=== PATIENT | male | born 1995 | race Caucasian/White ===

== ENCOUNTER 2018-04-24 22:22 | Emergency (ER) | payer BC, SELFPAY ==
--- NOTE | 2018-04-24 23:31 | ER ---
Nurse's Notes [facility] Name: Keenan Puckett Age: 22 yrs Sex: Male : 1995 Arrival Date: 04/24/2018 Time: 22:23 Bed 5 Private MD: Diagnosis: Acute upper respiratory infection, unspecified;Acute serous otitis media, left ear Presentation: 04/24 22:34 Presenting complaint: Patient states: throat pain X1 week. pt with family who has URI, ak1 Flu and strep. Transition of care: patient was not received from another setting of care. Onset of symptoms is unknown. Risk Assessment: Do you want to hurt yourself or someone else? Patient reports no desire to harm self or others. Initial Sepsis Screen: Does the patient meet any 2 criteria? Systolic BP < 90 mmHg. HR > 90 bpm. Does the patient have a suspected source of infection? No. Patient's initial sepsis screen is negative. Care prior to arrival: None. 22:34 Method Of Arrival: Ambulatory ak1 22:34 Acuity: RANDA 4 ak1 Triage Assessment: 22:36 General: Appears in no apparent distress. Behavior is calm, cooperative. Pain: ak1 Complains of pain in throat. EENT: Throat is reddened with gag reflex present. Neuro: No deficits noted. Cardiovascular: No deficits noted. Respiratory: Reports cough that is. GI: No signs and/or symptoms were reported involving the gastrointestinal system. : No signs and/or symptoms were reported regarding the genitourinary system. Derm: No signs and/or symptoms reported regarding the dermatologic system. Musculoskeletal: No signs and/or symptoms reported regarding the musculoskeletal system. Historical: - Allergies: 22:36 No Known Allergies; ak1 - Home Meds: 22:36 None [Active]; ak1 - PMHx: 22:36 None; ak1 - PSHx: 22:36 None; ak1 - Immunization history:: Adult Immunizations up to date. - Social history:: Smoking status: Patient uses tobacco products, denies chronic smoking, but will smoke occasionally. - Ebola Screening: : No symptoms or risks identified at this time. Screenin:38 Abuse screen: Denies threats or abuse. Denies injuries from another. Nutritional ak1 screening: No deficits noted. Tuberculosis screening: No symptoms or risk factors identified. Fall Risk None identified. Assessment: 22:37 Reassessment: Patient appears in no apparent distress at this time. No changes from ak1 previously documented assessment. see triage assessment. Vital Signs: 22:33 BP 132 / 98; Pulse 104; Resp 18; Temp 99.8(O); Pulse Ox 98% on R/A; Weight 86.18 kg ak1 (R); Height 5 ft. 10 in. (177.80 cm) (R); Pain 4/10; 23:29 BP 133 / 99; Pulse 101; Resp 18; Pulse Ox 96% on R/A; ak1 22:33 Body Mass Index 27.26 (86.18 kg, 177.80 cm) ak1 ED Course: 22:23 Patient arrived in ED. es 22:28 [facility]C [facility] snw 22:28 Marshal Mendoza MD is Attending Physician. snw 22:32 Susan Tuttle, RN is Primary Nurse. ak1 22:33 Arm band placed on Patient placed in an exam room, on a stretcher, on pulse oximetry, ak1 Patient notified of wait time. 22:35 Triage completed. ak1 22:38 Patient has correct armband on for positive identification. Bed in low position. Call ak1 light in reach. Side rails up X 1. Adult w/ patient. Pulse ox on. NIBP on. 23:32 No provider procedures requiring assistance completed. Patient did not have IV access ak1 during this emergency room visit. Administered Medications: 23:40 Drug: Augmentin 875 mg Route: PO; ak1 23:41 Follow up: Response: No adverse reaction ak1 Outcome: 23:31 Discharge ordered by . snw 23:33 Discharged to home ambulatory. ak1 23:33 Condition: good 23:33 Discharge instructions given to patient, family, Instructed on discharge instructions, follow up and referral plans. no drinking with medication, no driving heavy equipment, medication usage, Demonstrated understanding of instructions, follow-up care, medications, Prescriptions given X 2. 23:41 Patient left the ED. ak1 Signatures: Isi Torre FNP-C RESOURCE TECHNICIAN-Belinda Louis Susan Tuttle, RN RN ak1
--- NOTE | 2018-04-24 23:32 | EDPHYS ---
Physician Documentation [facility] Name: Keenan Puckett Age: 22 yrs Sex: Male : 1995 Arrival Date: 04/24/2018 Time: 22:23 Bed 5 Private MD: ED Physician Marshal Mendoza HPI: 04/25 02:43 This 22 yrs old Male presents to ER via Ambulatory with complaints of Flu snw Symptoms. 02:43 The patient or guardian reports cough. Onset: The symptoms/episode began/occurred snw suddenly, 3 day(s) ago, and became persistent. Modifying factors: The symptoms are alleviated by nothing. Associated signs and symptoms: Pertinent positives: fever, rhinorrhea, sore throat. Severity of symptoms: At their worst the symptoms were moderate. The patient has not experienced similar symptoms in the past. It is unknown whether or not the patient has recently seen a physician. Historical: - Allergies: 04/24 22:36 No Known Allergies; ak1 - Home Meds: 22:36 None [Active]; ak1 - PMHx: 22:36 None; ak1 - PSHx: 22:36 None; ak1 - Immunization history:: Adult Immunizations up to date. - Social history:: Smoking status: Patient uses tobacco products, denies chronic smoking, but will smoke occasionally. - Ebola Screening: : No symptoms or risks identified at this time. ROS: 04/25 02:42 Eyes: Negative for injury, pain, redness, and discharge. snw Neck: Negative for injury, pain, and swelling. Cardiovascular: Negative for chest pain, palpitations, and edema, Abdomen/GI: Negative for abdominal pain, nausea, vomiting, diarrhea, and constipation, Back: Negative for injury and pain, : Negative for injury, bleeding, discharge, and swelling, MS/Extremity: Negative for injury and deformity, Skin: Negative for injury, rash, and discoloration, Neuro: Negative for headache, weakness, numbness, tingling, and seizure. Constitutional: Positive for body aches, chills, malaise. ENT: Positive for sinus congestion, sore throat. Respiratory: Positive for cough. Exam: 02:39 Constitutional: This is a well developed, well nourished patient who is awake, alert, snw and in no acute distress. Head/Face: Normocephalic, atraumatic. Eyes: Pupils equal round and reactive to light, extra-ocular motions intact. Lids and lashes normal. Conjunctiva and sclera are non-icteric and not injected. Cornea within normal limits. Periorbital areas with no swelling, redness, or edema. Neck: Trachea midline, no thyromegaly or masses palpated, and no cervical lymphadenopathy. Supple, full range of motion without nuchal rigidity, or vertebral point tenderness. No Meningismus. Chest/axilla: Normal chest wall appearance and motion. Nontender with no deformity. No lesions are appreciated. Cardiovascular: Regular rate and rhythm with a normal S1 and S2. No gallops, murmurs, or rubs. Normal PMI, no JVD. No pulse deficits. Abdomen/GI: Soft, non-tender, with normal bowel sounds. No distension or tympany. No guarding or rebound. No evidence of tenderness throughout. Back: No spinal tenderness. No costovertebral tenderness. Full range of motion. Skin: Warm, dry with normal turgor. Normal color with no rashes, no lesions, and no evidence of cellulitis. MS/ Extremity: Pulses equal, no cyanosis. Neurovascular intact. Full, normal range of motion. Neuro: Awake and alert, GCS 15, oriented to person, place, time, and situation. Cranial nerves II-XII grossly intact. Motor strength 5/5 in all extremities. Sensory grossly intact. Cerebellar exam normal. Normal gait. 02:39 ENT: Ear canal(s): are normal, TM's: erythema, that is moderate, on the left, Nose: Nasal mucosa: edematous, Mouth: is normal, Posterior pharynx: erythema, that is mild, Voice: is normal. 02:39 Respiratory: the patient does not display signs of respiratory distress, Respirations: normal, Breath sounds: are clear throughout. Vital Signs: 04/24 22:33 BP 132 / 98; Pulse 104; Resp 18; Temp 99.8(O); Pulse Ox 98% on R/A; Weight 86.18 kg ak1 (R); Height 5 ft. 10 in. (177.80 cm) (R); Pain 4/10; 23:29 BP 133 / 99; Pulse 101; Resp 18; Pulse Ox 96% on R/A; ak1 22:33 Body Mass Index 27.26 (86.18 kg, 177.80 cm) ak1 MDM: 23:21 Patient medically screened. snw 04/25 02:41 Data reviewed: vital signs, nurses notes. Data interpreted: Pulse oximetry: on room air snw is 96 %. Interpretation: acceptable. Counseling: I had a detailed discussion with the patient and/or guardian regarding: the historical points, exam findings, and any diagnostic results supporting the discharge/admit diagnosis, the presence of at least one elevated blood pressure reading (>120/80) during this emergency department visit, lab results, the need for outpatient follow up, to return to the emergency department if symptoms worsen or persist or if there are any questions or concerns that arise at home. Special discussion: Based on the history and exam findings, there is no indication for further emergent testing or inpatient evaluation. I discussed with the patient/guardian the need to see the primary care provider for further evaluation of the symptoms. 04/24 22:38 Order name: Flu; Complete Time: 23:30 ak 04/24 22:38 Order name: Strep; Complete Time: 23:30 ak1 04/24 23:29 Order name: Throat Culture EDWV Administered Medications: 04/24 23:40 Drug: Augmentin 875 mg Route: PO; ak1 23:41 Follow up: Response: No adverse reaction ak1 Disposition: 04/25 03:11 Co-signature as Attending Physician, Marshal Mendoza MD. rn Disposition: 04/24/18 23:31 Discharged to Home. Impression: Acute upper respiratory infection, unspecified, Acute serous otitis media, left ear. - Condition is Stable. - Discharge Instructions: Otitis Media, Adult, Upper Respiratory Infection, Adult, Cool Mist Vaporizer, Rehydration, Adult. - Prescriptions for cefdinir 300 mg Oral capsule - take 2 capsule by ORAL route once daily for 10 days; 20 capsule. Prednisone 20 mg Oral Tablet - take 2 tablet by ORAL route once daily for 5 days; 10 tablet. - Work release form, Medication Reconciliation Form, Thank You Letter, Antibiotic Education, Prescription Opioid Use form. - Follow up: Private Physician; When: 2 - 3 days; Reason: Recheck today's complaints, Continuance of care, Re-evaluation by your physician. Follow up: Emergency Department; When: As needed; Reason: Worsening of condition. Signatures: [facility] Isi Torre, CREMATORY ATTENDANT-C CREMATORY ATTENDANT-Csnw Marshal Mendoza MD MD rn Krenek, Amber, RN RN ak1 Corrections: (The following items were deleted from the chart) 04/24 23:41 23:31 04/24/2018 23:31 Discharged to Home. Impression: Acute upper respiratory ak1 infection, unspecified; Acute serous otitis media, left ear. Condition is Stable. Forms are Medication Reconciliation Form, Thank You Letter, Antibiotic Education, Prescription Opioid Use. Follow up: Private Physician; When: 2 - 3 days; Reason: Recheck today's complaints, Continuance of care, Re-evaluation by your physician. Follow up: Emergency Department; When: As needed; Reason: Worsening of condition. snw
[2018-04-24] MEDS ORDERED: AMOX/K CLAV 875 MG TAB ONE (23:49)
== END 2018-04-24 23:41 | disposition home or self-care (01) ==
LOC: ER 22:22
DX: J06.9 Acute upper respiratory infection, unspecified (principal); H65.02 Acute serous otitis media, left ear; Z72.0 Tobacco use
CPT/HCPCS: 87070; 87081; 87804; 99283

== ENCOUNTER 2018-08-24 18:06 | Emergency (ER) | payer SELFPAY ==
--- OUTSIDE RECORDS SUMMARY | 2018-08-24 18:08 | XMS REPORT ---
:1995 [facility] Address [address] [place] [address] Dr. [place] [address] [place] [id number] Care Team Providers Name Role Phone Unavailable Unavailable Unavailable Problems This patient has no known problems. Allergies, Adverse Reactions, Alerts This patient has no known allergies or adverse reactions. Medications This patient has no known medications.
[2018-08-24] MEDS ORDERED: KETOROLAC 30 MG/ML INJ ONE (18:48)
[2018-08-24 19:06] LABS: Urine Bacteria <20 /HPF (NONE SEEN); Urine Culture Reflex Order NOT NEEDED; Urine Mucus 2+ /HPF (NONE SEEN); Urine RBC <5 /HPF (NONE SEEN)
--- NOTE | 2018-08-24 19:45 | EDPHYS ---
Physician Documentation [facility] Name: Keenan Puckett Age: 23 yrs Sex: Male : 1995 Arrival Date: 08/24/2018 Time: 18:08 Bed 23 Private MD: ED Physician Marshal Mendoza HPI: 08/24 18:56 This 23 yrs old Male presents to ER via Ambulatory with complaints of snw Abdominal Pain. 18:56 The patient presents with abdominal pain in the lower abdomen, in the left lower snw quadrant. Onset: The symptoms/episode began/occurred suddenly, 3 day(s) ago, and became persistent. The symptoms do not radiate. Associated signs and symptoms: none. The symptoms are described as steady. Severity of pain: At its worst the pain was moderate. The patient has not experienced similar symptoms in the past. The patient has not recently seen a physician. Historical: - Allergies: 18:11 No Known Allergies; lp1 - Home Meds: 18:11 None [Active]; lp1 - PMHx: 18:11 None; lp1 - PSHx: 18:11 None; lp1 - Immunization history:: Adult Immunizations up to date. - Social history:: Smoking status: Patient uses tobacco products, denies chronic smoking, but will smoke occasionally. - Ebola Screening: : No symptoms or risks identified at this time. ROS: 18:56 Constitutional: Negative for fever, chills, and weight loss, Eyes: Negative for injury, snw pain, redness, and discharge, ENT: Negative for injury, pain, and discharge, Neck: Negative for injury, pain, and swelling, Cardiovascular: Negative for chest pain, palpitations, and edema, Respiratory: Negative for shortness of breath, cough, wheezing, and pleuritic chest pain, Back: Negative for injury and pain, : Negative for injury, bleeding, discharge, and swelling, MS/Extremity: Negative for injury and deformity, Skin: Negative for injury, rash, and discoloration, Neuro: Negative for headache, weakness, numbness, tingling, and seizure. 18:56 Abdomen/GI: Positive for abdominal pain, of the left lower quadrant. Exam: 18:56 Constitutional: This is a well developed, well nourished patient who is awake, alert, snw and in no acute distress. Head/Face: Normocephalic, atraumatic. Eyes: Pupils equal round and reactive to light, extra-ocular motions intact. Lids and lashes normal. Conjunctiva and sclera are non-icteric and not injected. Cornea within normal limits. Periorbital areas with no swelling, redness, or edema. ENT: Nares patent. No nasal discharge, no septal abnormalities noted. Tympanic membranes are normal and external auditory canals are clear. Oropharynx with no redness, swelling, or masses, exudates, or evidence of obstruction, uvula midline. Mucous membranes moist. Neck: Trachea midline, no thyromegaly or masses palpated, and no cervical lymphadenopathy. Supple, full range of motion without nuchal rigidity, or vertebral point tenderness. No Meningismus. Chest/axilla: Normal chest wall appearance and motion. Nontender with no deformity. No lesions are appreciated. Cardiovascular: Regular rate and rhythm with a normal S1 and S2. No gallops, murmurs, or rubs. Normal PMI, no JVD. No pulse deficits. Respiratory: Lungs have equal breath sounds bilaterally, clear to auscultation and percussion. No rales, rhonchi or wheezes noted. No increased work of breathing, no retractions or nasal flaring. Back: No spinal tenderness. No costovertebral tenderness. Full range of motion. Skin: Warm, dry with normal turgor. Normal color with no rashes, no lesions, and no evidence of cellulitis. MS/ Extremity: Pulses equal, no cyanosis. Neurovascular intact. Full, normal range of motion. Neuro: Awake and alert, GCS 15, oriented to person, place, time, and situation. Cranial nerves II-XII grossly intact. Motor strength 5/5 in all extremities. Sensory grossly intact. Cerebellar exam normal. Normal gait. Psych: Awake, alert, with orientation to person, place and time. Behavior, mood, and affect are within normal limits. 18:56 Abdomen/GI: Inspection: abdomen appears normal, Bowel sounds: normal, Palpation: moderate abdominal tenderness, in the left lower quadrant. Vital Signs: 18:11 BP 142 / 91; Pulse 108; Resp 18; Temp 98(O); Pulse Ox 97% on R/A; Weight 95.25 kg (R); lp1 Height 5 ft. 10 in. (177.80 cm); Pain 3/10; 19:18 BP 140 / 96; Pulse 96; Resp 16 S; Pulse Ox 98% on R/A; ca1 20:26 BP 139 / 85; Pulse 94; Resp 17; Temp 98(O); Pulse Ox 98% on R/A; ca1 18:11 Body Mass Index 30.13 (95.25 kg, 177.80 cm) lp1 MDM: 18:21 Patient medically screened. snw 19:46 Data reviewed: vital signs, nurses notes. Data interpreted: Pulse oximetry: on room air snw is 97 %. Interpretation: normal. Counseling: I had a detailed discussion with the patient and/or guardian regarding: the historical points, exam findings, and any diagnostic results supporting the discharge/admit diagnosis, lab results, radiology results, the need for outpatient follow up, to return to the emergency department if symptoms worsen or persist or if there are any questions or concerns that arise at home. Special discussion: Based on the patient's Hx, exam, and Dx evaluation, there is no indication for emergent surgery or inpatient Tx. It is understood by the patient/guardian that if the Sx's persist or worsen they need to return immediately for re-evaluation. I have referred the patient to see his PCP for further evaluation of high blood pressure. Based on the history and exam findings, there is no indication for further emergent testing or inpatient evaluation. I discussed with the patient/guardian the need to see the analyst sales for further evaluation of the symptoms. I discussed with the patient/guardian the need to see the primary care provider for further evaluation of the symptoms. 08/24 18:28 Order name: Urine Microscopic Only; Complete Time: 19:11 snw 08/24 19:09 Order name: Urine Dipstick--Ancillary (enter results) ar5 08/24 18:28 Order name: Urine Dipstick-Ancillary (obtain specimen); Complete Time: 18:52 snw 08/24 18:28 Order name: CT Stone Protocol snw Administered Medications: 18:34 Drug: TORadol 30 mg Route: IM; Site: right deltoid; ca1 19:48 Follow up: Response: No adverse reaction; Pain is decreased ca1 19:52 Drug: Cipro 500 mg Route: PO; ca1 20:25 Follow up: Response: No adverse reaction ca1 Disposition: 08/24/18 19:44 Discharged to Home. Impression: Left sided colitis without complications. - Condition is Stable. - Discharge Instructions: Colitis, [place] Diet. - Prescriptions for Cipro 500 mg Oral Tablet - take 1 tablet by ORAL route every 12 hours for 10 days; 20 tablet. Diclofenac Sodium 75 mg Oral Tablet Sustained Release - take 1 tablet by ORAL route 2 times per day; 30 tablet. Miralax 17 gram/dose Oral - take 1 packet by ORAL route once daily dilute powder in 8 ounces of water or juice; 1 box. - Work release form, Medication Reconciliation Form, Thank You Letter, Antibiotic Education, Prescription Opioid Use form. - Follow up: Private Physician; When: 2 - 3 days; Reason: Recheck today's complaints, Continuance of care, Re-evaluation by your physician. Follow up: Emergency Department; When: As needed; Reason: Worsening of condition. Addendum: 08/27/2018 06:58 Co-signature as Attending Physician, Marshal Mendoza MD. r n Signatures: Dispatcher [employer] [facility]MS Isi Torre, BENDER MACHINE-C BENDER MACHINE-Csnw Marshal Mendoza MD MD rn Alexa Francisco, RN RN lp1 Natalie Ham RN RN ca1 Corrections: (The following items were deleted from the chart) 08/24 20:29 19:44 08/24/2018 19:44 Discharged to Home. Impression: Left sided colitis without ca1 complications. Condition is Stable. Forms are Medication Reconciliation Form, Thank You Letter, Antibiotic Education, Prescription Opioid Use. Follow up: Private Physician; When: 2 - 3 days; Reason: Recheck today's complaints, Continuance of care, Re-evaluation by your physician. Follow up: Emergency Department; When: As needed; Reason: Worsening of condition. snw
--- NOTE | 2018-08-24 19:45 | ER ---
Nurse's Notes [facility] Name: Keenan Puckett Age: 23 yrs Sex: Male : 1995 Arrival Date: 08/24/2018 Time: 18:08 Bed 23 Private MD: Diagnosis: Left sided colitis without complications Presentation: 08/24 18:10 Presenting complaint: Patient states: Pain to LLQ of abdomen x 3 days; Denies any lp1 N/V/D, fever, urinary symptoms; States pain is worse when laying down or sitting down. Transition of care: patient was not received from another setting of care. Onset of symptoms was August 24, 2018. Risk Assessment: Do you want to hurt yourself or someone else? Patient reports no desire to harm self or others. Initial Sepsis Screen: Does the patient meet any 2 criteria? No. Patient's initial sepsis screen is negative. Does the patient have a suspected source of infection? No. Patient's initial sepsis screen is negative. Care prior to arrival: None. 18:10 Method Of Arrival: Ambulatory lp1 18:10 Acuity: RANDA 3 lp1 Historical: - Allergies: 18:11 No Known Allergies; lp1 - Home Meds: 18:11 None [Active]; lp1 - PMHx: 18:11 None; lp1 - PSHx: 18:11 None; lp1 - Immunization history:: Adult Immunizations up to date. - Social history:: Smoking status: Patient uses tobacco products, denies chronic smoking, but will smoke occasionally. - Ebola Screening: : No symptoms or risks identified at this time. Screenin:12 Abuse screen: Denies threats or abuse. Denies injuries from another. Nutritional lp1 screening: No deficits noted. Tuberculosis screening: No symptoms or risk factors identified. Fall Risk None identified. Assessment: 18:20 General: Appears in no apparent distress. comfortable, Behavior is calm, cooperative, ca1 appropriate for age. Pain: Complains of pain in left lower quadrant Pain does not radiate. Pain currently is 3 out of 10 on a pain scale. at worst was 10 out of 10 on a pain scale. Quality of pain is described as sharp, Pain began 2-3 days ago. Is intermittent, Aggravated by repositioning. Neuro: Level of Consciousness is awake, alert, obeys commands, Oriented to person, place, time, situation. Cardiovascular: Heart tones S1 S2 present Capillary refill < 3 seconds Patient's skin is warm and dry. Pulses are all present. Respiratory: Airway is patent Respiratory effort is even, unlabored, Respiratory pattern is regular, symmetrical. GI: Abdomen is round non-distended, Bowel sounds present X 4 quads. Abd is soft X 4 quads Abdomen is tender to palpation in left lower quadrant. : No deficits noted. No signs and/or symptoms were reported regarding the genitourinary system. EENT: No deficits noted. No signs and/or symptoms were reported regarding the EENT system. Derm: Skin is intact, is healthy with good turgor, Skin is pink, warm \T\ dry. Musculoskeletal: Circulation, motion, and sensation intact. Capillary refill < 3 seconds, Range of motion: intact in all extremities. 19:18 Reassessment: Patient appears in no apparent distress at this time. Patient and/or ca1 family updated on plan of care and expected duration. Pain level reassessed. Patient is alert, oriented x 3, equal unlabored respirations, skin warm/dry/pink. 20:26 Reassessment: Patient appears in no apparent distress at this time. Patient is alert, ca1 oriented x 3, equal unlabored respirations, skin warm/dry/pink. Vital Signs: 18:11 BP 142 / 91; Pulse 108; Resp 18; Temp 98(O); Pulse Ox 97% on R/A; Weight 95.25 kg (R); lp1 Height 5 ft. 10 in. (177.80 cm); Pain 3/10; 19:18 BP 140 / 96; Pulse 96; Resp 16 S; Pulse Ox 98% on R/A; ca1 20:26 BP 139 / 85; Pulse 94; Resp 17; Temp 98(O); Pulse Ox 98% on R/A; ca1 18:11 Body Mass Index 30.13 (95.25 kg, 177.80 cm) lp1 ED Course: 18:08 Patient arrived in ED. mr 18:11 Triage completed. lp1 18:12 Arm band placed on left wrist. lp1 18:20 [facility]C [facility]. snw 18:20 Marshal Mendoza MD is Attending Physician. snw 18:20 Natalie Ham RN is Primary Nurse. ca1 18:20 Patient has correct armband on for positive identification. Placed in gown. Bed in low ca1 position. Call light in reach. Side rails up X 1. Pulse ox on. NIBP on. Warm blanket given. 18:20 No provider procedures requiring assistance completed. ca1 18:[address] via wheelchair. vm2 18:48 CT completed. Patient tolerated procedure well. Patient moved back from CT. nj 19:01 CT Stone Protocol In Process Unspecified. EDMS 20:28 Patient did not have IV access during this emergency room visit. ca1 Administered Medications: 18:34 Drug: TORadol 30 mg Route: IM; Site: right deltoid; ca1 19:48 Follow up: Response: No adverse reaction; Pain is decreased ca1 19:52 Drug: Cipro 500 mg Route: PO; ca1 20:25 Follow up: Response: No adverse reaction ca1 Outcome: 19:44 Discharge ordered by MD. snw 20:28 Discharged to home ambulatory, with significant other. ca1 20:28 Condition: stable 20:28 Discharge instructions given to patient, Instructed on discharge instructions, follow up and referral plans. medication usage, Demonstrated understanding of instructions, follow-up care, medications, Prescriptions given X 3. 20:29 Patient left the ED. ca1 Signatures: Dispatcher [employer] EDMS Isi Torre, DRAMATIC DIRECTOR-C DRAMATIC DIRECTOR-Barrett OrozcoMarcy mr FranciscoAlexa, RN RN lp1 Erick Rodrigues Victoria 2 Natalie Ham RN RN ca1 Corrections: (The following items were deleted from the chart) 18:25 18:20 Pain: Complains of pain in left lower quadrant Pain does not radiate. Pain ca1 currently is 3 out of 10 on a pain scale. at worst was 10 out of 10 on a pain scale. Quality of pain is described as sharp, Pain began 1 day ago. Is intermittent, Aggravated by repositioning, ca1 20:28 20:26 BP 140 / 96; Pulse 96bpm; Resp 16bpm; Spontaneous; Pulse Ox 98% RA; ca1 ca1 20:29 20:28 Discharge instructions given to patient, Instructed on discharge instructions, ca1 follow up and referral plans. medication usage, Demonstrated understanding of instructions, follow-up care, medications, Prescriptions given X 2, ca1
[2018-08-24] MEDS ORDERED: CIPROFLOXACIN HCL 500 MG TAB ONE (20:06)
[2018-08-24 20:30] LABS: Urine Blood NEGATIVE (NEG); Urine Glucose NEGATIVE (NEG); Urine Protein 1+ (NEG); Urine Specific Gravity >1.030 (1.005-1.030)
--- NOTE | 2018-08-27 13:31 | RAD REPORT ---
EXAM DESCRIPTION: CT - Stone Protocol - 08/24/2018 9:53 pm CLINICAL HISTORY: The patient is 23 years old and is Male; ABD PAIN TECHNIQUE: Axial computed tomography images of the abdomen and pelvis without intravenous contrast. Sagittal and coronal reformatted images were created and reviewed. This CT exam was performed usi ng one or more of the following dose reduction techniques: automated exposure control, adjustment o f the mA and/or kV according to patient size, and/or use of iterative reconstruction technique. COMPARISON: No relevant prior studies available. FINDINGS: Lung bases: Unremarkable. No mass. No consolidation. ABDOMEN: Liver: Unremarkable. Gallbladder and bile ducts: Unremarkable. No calcified stones. No ductal dilation. Pancreas: Unremarkable. No ductal dilation. Spleen: Unremarkable. No splenomegaly. Adrenals: Unremarkable. No mass. Kidneys and ureters: Unremarkable. No obstructing stones. No hydronephrosis. Stomach and bowel: Question mild rectosigmoid wall thickening may be due to underdistention or m ild nonspecific infectious or inflammatory etiology. PELVIS: Appendix: The appendix is seen and is within normal limits Bladder: Unremarkable. No stones. Reproductive: Unremarkable as visualized. ABDOMEN and PELVIS: Intraperitoneal space: Unremarkable. No free air. No significant fluid collection. Bones/joints: No acute fracture. No dislocation. Soft tissues: Unremarkable. Vasculature: Unremarkable. No abdominal aortic aneurysm. Lymph nodes: Unremarkable. No enlarged lymph nodes. IMPRESSION: Question mild rectosigmoid wall thickening may be due to underdistention or mild nonspec ific infectious or inflammatory etiology. Otherwise no other acute abnormality seen. Electronically signed by: Hal Vega MD 08/24/2018 7:15 PM CDT Due to temporary technical issues with the PACS/Fluency reporting system, reports are being signed by the in house radiologist as a courtesy to ensure prompt reporting. The interpreting radiologist is f jonyly responsible for the content of the report.
== END 2018-08-24 20:29 | disposition home or self-care (01) ==
LOC: ER 18:06
DX: K52.9 Noninfective gastroenteritis and colitis, unspecified (principal); Z72.0 Tobacco use
CPT/HCPCS: 74176; 76377; 81003; 81015; 96372; 99284

== ENCOUNTER 2018-11-29 23:50 | Emergency (ER) | payer SELFPAY ==
[2018-11-30] MEDS ORDERED: MORPHINE 4 MG/ML SYR ONE (00:30)
[2018-11-30] MEDS ORDERED: NA CHLORIDE 0.9% 2,000 ML ONE (00:30)
[2018-11-30] MEDS ORDERED: FAMOTIDINE 20 MG/2 ML VIAL IV ONE (00:30)
[2018-11-30] MEDS ORDERED: ONDANSETRON 4 MG/2 ML VIAL ONE (00:30)
[2018-11-30 00:33] LABS: Absolute Lymphocytes (CBC) 1.6 K/uL (0.7-4.9); Basophils % 0.1 % (0-1.3); Hematocrit 48.5 % (39.6-49.0); Lymphocytes % 9.6 % (15.3-44.8); MPV 8.8 fL (7.6-11.3); RBC Red Blood Cell Count 5.46 M/uL (4.33-5.43)
[2018-11-30 00:45] LABS: Albumin 4.8 g/dL (3.4-5.0); Bilirubin Direct 0.1 mg/dL (0-0.2); Bilirubin Total 0.3 mg/dL (0.2-1.0); Potassium 3.7 mmol/L (3.5-5.1); Protein, Total 9.3 g/dL (6.4-8.2)
[2018-11-30] MEDS ORDERED: NA CHLORIDE 0.9% 1,000 ML ONE (01:55)
[2018-11-30] MEDS ORDERED: METRONIDAZOLE 500mg IVPB 500 MG/100 ML BAG IV ONE (01:55)
[2018-11-30] MEDS ORDERED: CIPROFLOXACIN 400mg IV 400 MG/200 ML BAG IV ONE (01:55)
--- NOTE | 2018-11-30 02:01 | ER ---
Nurse's Notes [facility] Name: Keenan Puckett Age: 23 yrs Sex: Male : 1995 Arrival Date: 11/29/2018 Time: 23:51 Bed 5 Private MD: Diagnosis: Abdominal tenderness;Vomiting;Diarrhea, unspecified;Elevated white blood cell count Presentation: 11/30 00:00 Presenting complaint: Patient states: that he has been having abdominal pain all day but then at 2200 he started to vomit and has not stopped. Pt also having diarrhea. Transition of care: patient was not received from another setting of care. Onset of symptoms was November 30, 2018. Risk Assessment: Do you want to hurt yourself or someone else? Patient reports no desire to harm self or others. Care prior to arrival: None. 00:00 Method Of Arrival: Ambulatory fc 00:00 Acuity: RANDA 3 03:41 Initial Sepsis Screen: Does the patient meet any 2 criteria? No. Patient's initial sepsis screen is negative. Does the patient have a suspected source of infection? No. Patient's initial sepsis screen is negative. Triage Assessment: 00:00 General: Appears uncomfortable, ill, Behavior is calm, cooperative, appropriate for age. Pain: Complains of pain in abdomen Quality of pain is described as aching, pressure, throbbing, Pain began 1 day ago. Is continuous. EENT: No deficits noted. Neuro: Level of Consciousness is awake, alert, obeys commands, Oriented to person, place, time, situation, Appropriate for age. Cardiovascular: No deficits noted. Respiratory: No deficits noted. GI: Abdomen is flat, Pt is actively vomiting bile, Bowel sounds present X 4 quads. Abd is soft X 4 quads Abdomen is tender to palpation X 4 quads. Reports lower abdominal pain, upper abdominal pain, diarrhea, nausea, vomiting. : No deficits noted. Derm: Skin is intact, Skin is moist, Skin is pale, Skin temperature is warm. Musculoskeletal: Circulation, motion, and sensation intact. Capillary refill < 3 seconds, Range of motion: intact in all extremities. Historical: - Allergies: 00:09 No Known Allergies; fc - Home Meds: 00:09 None [Active]; fc - PMHx: 00:09 None; fc - PSHx: 00:09 None; fc - Immunization history:: Last tetanus immunization: up to date. - Social history:: Smoking status: Patient uses tobacco products, vaps, Patient uses alcohol, occasionally. Patient/guardian denies using street drugs. - Ebola Screening: : Patient negative for fever greater than or equal to 101.5 degrees Fahrenheit, and additional compatible Ebola Virus Disease symptoms Patient denies exposure to infectious person Patient denies travel to an Ebola-affected area in the 21 days before illness onset. Screenin:41 Abuse screen: Denies threats or abuse. Denies injuries from another. Nutritional ch screening: No deficits noted. Tuberculosis screening: No symptoms or risk factors identified. Fall Risk None identified. Assessment: 00:41 General: Appears in no apparent distress. comfortable, Behavior is calm, cooperative, ch appropriate for age. Pain: Complains of pain in abdomen Pain currently is 8 out of 10 on a pain scale. Neuro: No deficits noted. Respiratory: No deficits noted. Airway is patent Respiratory effort is even, unlabored. GI: Abdomen is round non-distended, Bowel sounds present X 4 quads. Abd is soft X 4 quads Abdomen is tender to palpation in abdomen diffusely. : No signs and/or symptoms were reported regarding the genitourinary system. Derm: Skin is clammy, Skin is pale. Musculoskeletal: No signs and/or symptoms reported regarding the musculoskeletal system. 01:04 Reassessment: Patient appears in no apparent distress at this time. Patient and/or ch family updated on plan of care and expected duration. Pain level reassessed. Patient is alert, oriented x 3, equal unlabored respirations, skin warm/dry/pink. Patient states feeling better. Patient states symptoms have improved. 02:04 Reassessment: pt has cipro, flagyl, and a bolus running. AWAITING DISCHARGE TILL ch MEDICATIONS FINISH. 03:00 Reassessment: PT ANTIBIOTICS ARE FINISHED. PT IS TO BE DISCHARGED WHEN HE STARTED ch VOMITING. PHYSICIAN NOTIFIED, VERBAL ORDER FROM STEPHANIE FOR 12.5 OF PHENERGAN. 03:40 Reassessment: Patient appears in no apparent distress at this time. Patient and/or ch family updated on plan of care and expected duration. Pain level reassessed. Patient is alert, oriented x 3, equal unlabored respirations, skin warm/dry/pink. Patient states feeling better. Patient states symptoms have improved. Vital Signs: 00:00 BP 130 / 90; Pulse 105; Resp 20; Temp 97.5(O); Pulse Ox 98% on R/A; Weight 90.72 kg fc (R); Height 5 ft. 9 in. (175.26 cm) (R); Pain 8/10; 01:04 BP 127 / 80; Pulse 87; Resp 14; Temp 98.2; Pulse Ox 100% ; Pain 3/10; ch 03:00 BP 118 / 74; Pulse 77; Resp 16; Temp 98.1; Pulse Ox 99% on R/A; Pain 3/10; ch 03:40 BP 110 / 56; Pulse 68; Resp 14; Temp 97.2; Pulse Ox 100% on R/A; Pain 2/10; ch 00:00 Body Mass Index 29.54 (90.72 kg, 175.26 cm) ED Course: 11/29 23:51 Patient arrived in ED. cl3 11/30 00:00 Arm band placed on Patient placed in an exam room, on a stretcher. fc 00:04 Jamie Gomez MD is Attending Physician. seamus 00:08 Triage completed. 00:20 No apparent distress. Resting quietly. ch 00:20 No provider procedures requiring assistance completed. Initial lab(s) drawn, by wv, ch sent to lab. Inserted saline lock: 18 gauge in right antecubital area, using aseptic technique. Blood collected. 00:41 Alcira James, RN is Primary Nurse. 00:41 Patient has correct armband on for positive identification. Bed in low position. Call light in reach. Side rails up X 1. Adult w/ patient. Pulse ox on. NIBP on. 00:54 Radiology exam delayed due to PT WANTS TO WAIT UNTIL THE MEDS WORK. HB RT. kw 01:48 Basic Metabolic Panel Sent. ch 02:08 CT Abd/Pelvis - IV Contrast Only In Process Unspecified. EDMS 03:25 CBC with Diff Sent. ch 03:25 Creatinine for Radiology Sent. ch 03:25 Hepatic Function Sent. ch 03:25 Lipase Sent. ch 03:40 IV discontinued, intact, bleeding controlled, No redness/swelling at site. Pressure ch dressing applied. Administered Medications: 00:25 Drug: NS 0.9% 1000 ml Route: IV; Rate: 1 bolus; Site: right antecubital; fc 01:47 Follow up: IV Status: Completed infusion; IV Intake: 1000ml ch 00:25 Drug: Zofran 4 mg Route: IVP; Site: right antecubital; fc 01:46 Follow up: Response: No adverse reaction; Nausea is decreased ch 00:30 Drug: Pepcid 20 mg Route: IVP; Site: right antecubital; fc 01:46 Follow up: Response: No adverse reaction ch 00:35 Drug: morphine 2 mg {Note: rass 0.} Route: IVP; Site: right antecubital; fc 00:39 Drug: NS 0.9% 1000 ml Route: IV; Rate: 1 bolus; Site: right antecubital; fc 01:47 Follow up: IV Status: Completed infusion; IV Intake: 1000ml ch 01:46 Drug: morphine 2 mg Route: IVP; Site: right antecubital; ch 01:46 Follow up: Response: No adverse reaction ch 02:00 Drug: Flagyl 500 mg Volume: 100 ml; Route: IVPB; Rate: 200 ml/hr; Infused Over: 30 aa1 mins; Site: right antecubital; 03:24 Follow up: IV Status: Completed infusion; IV Intake: 200ml ch 02:00 Drug: NS 0.9% 1000 ml Route: IV; Rate: 1 bolus; Site: right antecubital; aa1 03:00 Follow up: IV Status: Completed infusion; IV Intake: 1000ml ch 02:02 Drug: Cipro 400 mg Volume: 200 ml; Route: IVPB; Infused Over: 60 mins; Site: right aa1 antecubital; 03:24 Follow up: IV Status: Completed infusion; IV Intake: 200ml ch 02:50 Drug: Zofran 4 mg Route: IVP; Site: right antecubital; ch 03:25 Follow up: Response: No adverse reaction ch 03:10 Drug: Phenergan 12.5 mg Route: IVP; Site: right antecubital; ch 03:42 Follow up: Response: No adverse reaction; Nausea is decreased ch Intake: 01:47 IV: 1000ml; Total: 1000ml. ch 01:47 IV: 1000ml; Total: 2000ml. ch 03:00 IV: 1000ml; Total: 3000ml. ch 03:24 IV: 200ml; Total: 3200ml. ch 03:24 IV: 200ml; Total: 3400ml. Outcome: 01:57 Discharge ordered by . seamus 03:40 Discharged to home via wheelchair, with family. 03:40 Condition: stable 03:40 Discharge instructions given to patient, family, Instructed on discharge instructions, follow up and referral plans. medication usage, Demonstrated understanding of instructions, follow-up care, medications, Prescriptions given X 5 03:41 Patient left the ED. Signatures: Dispatcher [employer] Alcira Coburn RN RN Lucy Campos RN RN aa1 Jamie Gomez MD MD cha Chretien, Felicia, RN RN Lizzie Izaguirre Charde cl3 Corrections: (The following items were deleted from the chart) 00:14 00:00 90.72 kg Reported; Height 5 ft. 9 in. Reported; BMI: 29.5; [facility]
--- NOTE | 2018-11-30 02:01 | EDPHYS ---
Physician Documentation [facility] Name: Keenan Puckett Age: 23 yrs Sex: Male : 1995 Arrival Date: 11/29/2018 Time: 23:51 Bed 5 Private MD: ED Physician Jamie Gomez HPI: 11/30 00:19 This 23 yrs old Male presents to ER via Ambulatory with complaints of seamus Abdominal Pain, Nausea/Vomiting/Diarrhea. 00:19 The patient presents to the emergency department with nausea, vomiting, diarrhea, that seamus is continuous, abdominal pain. Onset: The symptoms/episode began/occurred 1 day(s) ago. Possible causes: unknown. The symptoms are aggravated by. Severity of symptoms: At their worst the symptoms were. The patient has not experienced similar symptoms in the past. Historical: - Allergies: 00:09 No Known Allergies; fc - Home Meds: 00:09 None [Active]; fc - PMHx: 00:09 None; fc - PSHx: 00:09 None; fc - Immunization history:: Last tetanus immunization: up to date. - Social history:: Smoking status: Patient uses tobacco products, vaps, Patient uses alcohol, occasionally. Patient/guardian denies using street drugs. - Ebola Screening: : Patient negative for fever greater than or equal to 101.5 degrees Fahrenheit, and additional compatible Ebola Virus Disease symptoms Patient denies exposure to infectious person Patient denies travel to an Ebola-affected area in the 21 days before illness onset. ROS: 00:21 Constitutional: Negative for fever, chills, and weight loss, Eyes: Negative for injury, seamus pain, redness, and discharge, ENT: Negative for injury, pain, and discharge, Neck: Negative for injury, pain, and swelling, Cardiovascular: Negative for chest pain, palpitations, and edema, Respiratory: Negative for shortness of breath, cough, wheezing, and pleuritic chest pain, Back: Negative for injury and pain, : Negative for injury, bleeding, discharge, and swelling, MS/Extremity: Negative for injury and deformity, Skin: Negative for injury, rash, and discoloration, Neuro: Negative for headache, weakness, numbness, tingling, and seizure, Psych: Negative for depression, anxiety, suicide ideation, homicidal ideation, and hallucinations, Allergy/Immunology: Negative for hives, rash, and allergies, Endocrine: Negative for neck swelling, polydipsia, polyuria, polyphagia, and marked weight changes, Hematologic/Lymphatic: Negative for swollen nodes, abnormal bleeding, and unusual bruising. 00:21 Abdomen/GI: Positive for abdominal pain, nausea and vomiting, diarrhea. Exam: 00:21 Constitutional: This is a well developed, well nourished patient who is awake, alert, seamus and in no acute distress. Head/Face: Normocephalic, atraumatic. Eyes: Pupils equal round and reactive to light, extra-ocular motions intact. Lids and lashes normal. Conjunctiva and sclera are non-icteric and not injected. Cornea within normal limits. Periorbital areas with no swelling, redness, or edema. ENT: Nares patent. No nasal discharge, no septal abnormalities noted. Tympanic membranes are normal and external auditory canals are clear. Oropharynx with no redness, swelling, or masses, exudates, or evidence of obstruction, uvula midline. Mucous membranes moist. Neck: Trachea midline, no thyromegaly or masses palpated, and no cervical lymphadenopathy. Supple, full range of motion without nuchal rigidity, or vertebral point tenderness. No Meningismus. Chest/axilla: Normal chest wall appearance and motion. Nontender with no deformity. No lesions are appreciated. Respiratory: Lungs have equal breath sounds bilaterally, clear to auscultation and percussion. No rales, rhonchi or wheezes noted. No increased work of breathing, no retractions or nasal flaring. Back: No spinal tenderness. No costovertebral tenderness. Full range of motion. Male : Normal genitalia with no discharge or lesions. Skin: Warm, dry with normal turgor. Normal color with no rashes, no lesions, and no evidence of cellulitis. MS/ Extremity: Pulses equal, no cyanosis. Neurovascular intact. Full, normal range of motion. Neuro: Awake and alert, GCS 15, oriented to person, place, time, and situation. Cranial nerves II-XII grossly intact. Motor strength 5/5 in all extremities. Sensory grossly intact. Cerebellar exam normal. Normal gait. Psych: Awake, alert, with orientation to person, place and time. Behavior, mood, and affect are within normal limits. 00:21 Cardiovascular: Rate: tachycardic, Rhythm: regular, Pulses: Pulses are 4+ in bilateral radial, brachial, femoral, popliteal, posterior tibial and and dorsalis pedis arteries.. Heart sounds: normal, normal S1and S2, no S3 or S4, no murmur, no rub, no gallop, Edema: is not appreciated. Vital Signs: 00:00 BP 130 / 90; Pulse 105; Resp 20; Temp 97.5(O); Pulse Ox 98% on R/A; Weight 90.72 kg fc (R); Height 5 ft. 9 in. (175.26 cm) (R); Pain 8/10; 01:04 BP 127 / 80; Pulse 87; Resp 14; Temp 98.2; Pulse Ox 100% ; Pain 3/10; ch 03:00 BP 118 / 74; Pulse 77; Resp 16; Temp 98.1; Pulse Ox 99% on R/A; Pain 3/10; ch 03:40 BP 110 / 56; Pulse 68; Resp 14; Temp 97.2; Pulse Ox 100% on R/A; Pain 2/10; ch 00:00 Body Mass Index 29.54 (90.72 kg, 175.26 cm) MDM: 00:04 Patient medically screened. [facility] 00:22 Data reviewed: vital signs, nurses notes, lab test result(s), radiologic studies. [facility] 11/30 00:06 Order name: Basic Metabolic Panel [facility] 11/30 00:06 Order name: CBC with Diff [facility] 11/30 00:06 Order name: Creatinine for Radiology [facility] 11/30 00:06 Order name: Hepatic Function [facility] 11/30 00:06 Order name: Lipase [facility] 11/30 00:43 Order name: CBC with Automated Diff [facility] 11/30 00:44 Order name: Creatinine (Radiology Only) [facility] 11/30 00:49 Order name: Basic Metabolic Panel [facility] 11/30 00:49 Order name: Liver (Hepatic) Function [facility] 11/30 00:49 Order name: Lipase [facility] 11/30 00:57 Order name: CT Abd/Pelvis - IV Contrast Only [facility] 11/30 00:06 Order name: IV Saline Lock; Complete Time: 01:47 [facility] 11/30 00:06 Order name: Labs collected and sent; Complete Time: 01:47 [facility] Administered Medications: 00:25 Drug: NS 0.9% 1000 ml Route: IV; Rate: 1 bolus; Site: right antecubital; fc 01:47 Follow up: IV Status: Completed infusion; IV Intake: 1000ml ch 00:25 Drug: Zofran 4 mg Route: IVP; Site: right antecubital; fc 01:46 Follow up: Response: No adverse reaction; Nausea is decreased ch 00:30 Drug: Pepcid 20 mg Route: IVP; Site: right antecubital; fc 01:46 Follow up: Response: No adverse reaction ch 00:35 Drug: morphine 2 mg {Note: rass 0.} Route: IVP; Site: right antecubital; fc 00:39 Drug: NS 0.9% 1000 ml Route: IV; Rate: 1 bolus; Site: right antecubital; fc 01:47 Follow up: IV Status: Completed infusion; IV Intake: 1000ml ch 01:46 Drug: morphine 2 mg Route: IVP; Site: right antecubital; ch 01:46 Follow up: Response: No adverse reaction ch 02:00 Drug: Flagyl 500 mg Volume: 100 ml; Route: IVPB; Rate: 200 ml/hr; Infused Over: 30 aa1 mins; Site: right antecubital; 03:24 Follow up: IV Status: Completed infusion; IV Intake: 200ml ch 02:00 Drug: NS 0.9% 1000 ml Route: IV; Rate: 1 bolus; Site: right antecubital; aa1 03:00 Follow up: IV Status: Completed infusion; IV Intake: 1000ml ch 02:02 Drug: Cipro 400 mg Volume: 200 ml; Route: IVPB; Infused Over: 60 mins; Site: right aa1 antecubital; 03:24 Follow up: IV Status: Completed infusion; IV Intake: 200ml ch 02:50 Drug: Zofran 4 mg Route: IVP; Site: right antecubital; ch 03:25 Follow up: Response: No adverse reaction ch 03:10 Drug: Phenergan 12.5 mg Route: IVP; Site: right antecubital; ch 03:42 Follow up: Response: No adverse reaction; Nausea is decreased ch Disposition: 11/30/18 01:57 Discharged to Home. Impression: Abdominal tenderness, Vomiting, Diarrhea, unspecified, Elevated white blood cell count. - Condition is Stable. - Discharge Instructions: Abdominal Pain, Adult, Food Choices to Help Relieve Diarrhea, Adult, Diarrhea, Adult, Nausea and Vomiting, Adult, Nausea and Vomiting, Adult, [id number], Abdominal Pain, Adult, Yjkj-[id number], Diarrhea, Adult, Kqya-sf-Nfze. - Prescriptions for Pepcid 20 mg Oral Tablet - take 1 tablet by ORAL route every 12 hours for 10 days; 20 tablet. Zofran 4 mg Oral Tablet - take 1 tablet by ORAL route every 12 hours As needed; 20 tablet. Bentyl 20 mg Oral Tablet - take 1 tablet by ORAL route every 6 hours As needed; 20 tablet. Flagyl 500 mg Oral Tablet - take 1 tablet by ORAL route every 8 hours for 7 days; 21 tablet. Cipro 500 mg Oral Tablet - take 1 tablet by ORAL route every 12 hours for 7 days; 14 tablet. - Work release form, Medication Reconciliation Form, Thank You Letter, Antibiotic Education, Prescription Opioid Use form. - Follow up: Private Physician; When: 2 - 3 days; Reason: Recheck today's complaints, Continuance of care, Re-evaluation by your physician. - Problem is new. - Symptoms have improved. Signatures: Dispatcher [employer] [facility] Alcira James RN RN Lucy Chester RN RN aa1 Jamie Gomez MD MD cha Chretien, Felicia RN RN fc Corrections: (The following items were deleted from the chart) 02:20 00:09 Abdomen Acute Series+RAD.RAD.BRZ ordered. [facility] 03:41 01:57 11/30/2018 01:57 Discharged to Home. Impression: Abdominal tenderness; Vomiting; ch Diarrhea, unspecified; Elevated white blood cell count. Condition is Stable. Discharge Instructions: Abdominal Pain, Adult, Food Choices to Help Relieve Diarrhea, Adult, Diarrhea, Adult, Nausea and Vomiting, Adult, Nausea and Vomiting, Adult, [id number], Abdominal Pain, Adult, Adug-qo-Ytih, Diarrhea, Adult, Zqtm-nf-Swar. Prescriptions for Pepcid 20 mg Oral Tablet - take 1 tablet by ORAL route every 12 hours for 10 days; 20 tablet, Zofran 4 mg Oral Tablet - take 1 tablet by ORAL route every 12 hours As needed; 20 tablet, Bentyl 20 mg Oral Tablet - take 1 tablet by ORAL route every 6 hours As needed; 20 tablet, Flagyl 500 mg Oral Tablet - take 1 tablet by ORAL route every 8 hours for 7 days; 21 tablet, Cipro 500 mg Oral Tablet - take 1 tablet by ORAL route every 12 hours for 7 days; 14 tablet. and Forms are Medication Reconciliation Form, Thank You Letter, Antibiotic Education, Prescription Opioid Use. Follow up: Private Physician; When: 2 - 3 days; Reason: Recheck today's complaints, Continuance of care, Re-evaluation by your physician. Problem is new. Symptoms have improved. seamus
[2018-11-30 04:11] VITALS: BP 110/56; TEMP 97.2; O2SAT 100
--- NOTE | 2018-11-30 10:43 | RAD REPORT ---
EXAM DESCRIPTION: CT - Abdomen Pelvis W Contrast - 11/30/2018 1:58 am CLINICAL HISTORY: Pain;Nausea / vomiting COMPARISON: None. TECHNIQUE: CT ABDOMEN PELVIS WITH IV CONTRAST on 11/30/2018 12:57 AM CDT This exam was performed according to our departmental dose-optimization program, which includes autom ated exposure control, adjustment of the mA and/or kV according to patient size and/or use of iterati ve reconstruction technique. FINDINGS: Lower lungs are clear. Abdomen: The liver is normal in appearance. There is no biliary dilatation. There is a small hiatal h ernia. Gallbladder is normal in appearance. The pancreas and spleen are normal in appearance. The adr enal glands and kidneys are unremarkable. Abdominal aorta is normal in course and caliber without aneurysm. There is no free air. There is no r etroperitoneal adenopathy. Pelvis: There is no bowel obstruction. Urinary bladder is unremarkable. There is no free fluid. Appen shaquille is normal. Skeleton: There are no acute osseous findings. No suspicious bony lesions. There is mild rightward cu rvature of the lumbar spine. IMPRESSION: No acute inflammatory process. No renal or ureteral calculi. Electronically signed by: Alfonso Mcduffie MD 11/30/2018 1:49 AM CDT Due to temporary technical issues with the PACS/Fluency reporting system, reports are being signed by the in house radiologist as a courtesy to ensure prompt reporting. The interpreting radiologist is f ully responsible for the content of the report.
== END 2018-11-30 03:41 | disposition home or self-care (01) ==
LOC: ER 23:50
DX: R11.10 Vomiting, unspecified (principal); R19.7 Diarrhea, unspecified; D72.829 Elevated white blood cell count, unspecified; F17.290 Nicotine dependence, other tobacco product, uncomplicated
CPT/HCPCS: 36415; 74177; 80048; 80076; 83690; 85025; 96361; 96365; 96368; 96375; 99284; J0744; J2405; J7030; Q9967

== ENCOUNTER 2020-10-23 11:11 | Emergency (ER) | payer OTHER, SELFPAY ==
--- OUTSIDE RECORDS SUMMARY | 2020-10-23 11:14 | XMS REPORT | Continuity of Care Document ---
:1995 Author Organization [facility] t Address [facility] [place] [address] [place] [id number] Care Team Providers Name Role Phone Unavailable Unavailable Unavailable Problems This patient has no known problems. Allergies, Adverse Reactions, Alerts This patient has no known allergies or adverse reactions. Medications This patient has no known medications. Procedures This patient has no known procedures. Results This patient has no known results.
--- NOTE | 2020-10-23 15:29 | ER ---
Nurse's Notes [facility] Name: Keenan Puckett Age: 25 yrs Sex: Male : 1995 Arrival Date: 10/23/2020 Time: 11:14 Bed 10 Private MD: Diagnosis: Diarrhea, unspecified;Nausea with vomiting, unspecified Presentation: 10/23 13:05 Chief complaint: Patient states: Diarrhea, nausea, abdomina pain x 1 day. Coronavirus kg screen: Client denies travel out of the [place] in the last 14 days. At this time, unable to obtain information related to travel outside the [place] Client presents with at least one sign or symptom that may indicate coronavirus-19. Standard/surgical mask placed on the client. Provider contacted for isolation considerations. Ebola Screen: Patient negative for fever greater than or equal to 101.5 degrees Fahrenheit, and additional compatible Ebola Virus Disease symptoms Patient denies exposure to infectious person. Patient denies travel to an Ebola-affected area in the 21 days before illness onset. Initial Sepsis Screen: Does the patient meet any 2 criteria? No. Patient's initial sepsis screen is negative. Does the patient have a suspected source of infection? No. Patient's initial sepsis screen is negative. Risk Assessment: Do you want to hurt yourself or someone else? Patient reports no desire to harm self or others. Onset of symptoms was October 23, 2020. 13:05 Method Of Arrival: Ambulatory kg 13:05 Acuity: RANDA 4 kg Triage Assessment: 13:07 General: Appears in no apparent distress. Behavior is calm, cooperative, appropriate kg for age, quiet. Pain: Complains of pain in abdomen Pain does not radiate. Pain currently is 1 out of 10 on a pain scale. at worst was 1 out of 10 on a pain scale. level that patient reports is acceptable is 1 out of 10 on a pain scale. Quality of pain is described as aching, Pain began 1 day ago. Is continuous. GI: Reports lower abdominal pain, diarrhea, nausea. Historical: - Allergies: 13:07 No Known Allergies; kg - Home Meds: 13:07 None [Active]; kg - PMHx: 13:07 None; kg - PSHx: 13:07 None; kg - Immunization history:: Adult Immunizations not up to date, Client reports receiving the 1st dose of the Covid vaccine, Pt stated he got his first vaccine but missed the second and cant remember which one it was. . - Social history:: Smoking status: Patient denies any tobacco usage or history of. Screenin:09 Abuse screen: Denies threats or abuse. Denies injuries from another. Nutritional kg screening: No deficits noted. Tuberculosis screening: No symptoms or risk factors identified. Fall Risk None identified. Assessment: 14:34 General: Appears in no apparent distress. Behavior is calm, cooperative. Pain: Pain hb currently is 1 out of 10 on a pain scale. Neuro: Level of Consciousness is awake, alert, obeys commands, Oriented to person, place, time, situation. Cardiovascular: Patient's skin is warm and dry. Respiratory: Respiratory effort is even, unlabored, Respiratory pattern is regular, symmetrical. GI: Reports lower abdominal pain, upper abdominal pain, diarrhea, nausea, vomiting. : No signs and/or symptoms were reported regarding the genitourinary system. EENT: No signs and/or symptoms were reported regarding the EENT system. Derm: Skin is pink, warm \T\ dry. Musculoskeletal: No signs and/or symptoms reported regarding the musculoskeletal system. Vital Signs: 13:05 BP 133 / 99; Pulse 86; Resp 20; Temp 98.1(O); Pulse Ox 100% on R/A; Weight 97.52 kg kg (R); Height 5 ft. 10 in. (177.80 cm) (R); Pain 1/10; 13:05 Body Mass Index 30.85 (97.52 kg, 177.80 cm) kg ED Course: 11:14 Patient arrived in ED. am2 11:33 [facility]C [facility] kb 11:33 Stewart Lundberg MD is Attending Physician. kb 13:07 Triage completed. kg 13:07 Arm band placed on right wrist. kg 13:09 Patient has correct armband on for positive identification. kg 14:18 Patient placed in an exam room, on a stretcher. ll1 14:34 Vanesa Enriquez, RN is Primary Nurse. hb Administered Medications: No medications were administered Outcome: 15:28 Discharge ordered by MD. kb 15:57 Patient left the ED. hb Signatures: Audra Young FNP-C PYROMETER OPERATOR-Ckb Vanesa Enriquez, RN RN Jacque Moody am2 Hyacinth Roche RN RN ll1 Isabelle Wolf RN RN kg Corrections: (The following items were deleted from the chart) 14:16 13:12 CORONAVIRUS+.BRZ drawn and sent. kg EDMS
--- NOTE | 2020-10-23 15:29 | EDPHYS ---
Physician Documentation [facility] Name: Keenan Puckett Age: 25 yrs Sex: Male : 1995 Arrival Date: 10/23/2020 Time: 11:14 Bed 10 Private MD: ED Physician Stewart Lundberg HPI: 10/23 15:42 This 25 yrs old Male presents to ER via Ambulatory with complaints of kb Vomiting/Diarrhea. 15:42 The patient presents to the emergency department with nausea, vomiting, diarrhea. kb Onset: The symptoms/episode began/occurred this morning. Possible causes: unknown. The symptoms are aggravated by nothing. The symptoms are alleviated by nothing. Associated signs and symptoms: Pertinent positives: diarrhea, nausea, vomiting, Pertinent negatives: abdominal pain, fever. Severity of symptoms: At their worst the symptoms were mild in the emergency department the symptoms are unchanged. The patient has not experienced similar symptoms in the past. The patient has not recently seen a physician. Pt reports nausea, vomiting and diarrhea that started this morning. States he has been tolerating PO intake since last episode of vomiting and is no longer nauseated. Was sent home from work for symptoms so he came here to get covid tested. . Historical: - Allergies: 13:07 No Known Allergies; kg - Home Meds: 13:07 None [Active]; kg - PMHx: 13:07 None; kg - PSHx: 13:07 None; kg - Immunization history:: Adult Immunizations not up to date, Client reports receiving the 1st dose of the Covid vaccine, Pt stated he got his first vaccine but missed the second and cant remember which one it was. . - Social history:: Smoking status: Patient denies any tobacco usage or history of. ROS: 15:41 Constitutional: Negative for fever, chills, and weight loss. kb 15:41 Abdomen/GI: Positive for nausea, vomiting, and diarrhea, Negative for abdominal pain. 15:41 All other systems are negative. Exam: 15:42 Constitutional: This is a well developed, well nourished patient who is awake, alert, kb and in no acute distress. Head/Face: Normocephalic, atraumatic. ENT: Moist Mucous membranes Cardiovascular: Regular rate and rhythm with a normal S1 and S2. No gallops, murmurs, or rubs. No pulse deficits. Respiratory: Respirations even and unlabored. No increased work of breathing, no retractions or nasal flaring. Skin: Warm, dry with normal turgor. Normal color. MS/ Extremity: Pulses equal, no cyanosis. Neurovascular intact. Full, normal range of motion. Neuro: Awake and alert, GCS 15, oriented to person, place, time, and situation. Moves all extremities. Normal gait. Psych: Awake, alert, with orientation to person, place and time. Behavior, mood, and affect are within normal limits. Vital Signs: 13:05 BP 133 / 99; Pulse 86; Resp 20; Temp 98.1(O); Pulse Ox 100% on R/A; Weight 97.52 kg kg (R); Height 5 ft. 10 in. (177.80 cm) (R); Pain /10; 13:05 Body Mass Index 30.85 (97.52 kg, 177.80 cm) kg MDM: 13:12 Patient medically screened. kb 15:36 Data reviewed: vital signs, nurses notes. Data interpreted: Pulse oximetry: on room air kb is 100 %. Interpretation: normal. Counseling: I had a detailed discussion with the patient and/or guardian regarding: the historical points, exam findings, and any diagnostic results supporting the discharge/admit diagnosis, lab results, the need for outpatient follow up, a family practitioner, to return to the emergency department if symptoms worsen or persist or if there are any questions or concerns that arise at home. 15:44 ED course: Pt is nontoxic in appearance. No abd pain reported, no tenderness kb appreciated on exam. 10/23 15:06 Order name: SARS-COV-2 RT PCR; Complete Time: 15:06 EDMS Administered Medications: No medications were administered Disposition: 19:28 Co-signature as Attending Physician, Stewart Lundberg MD I agree with the assessment and kdr plan of care. Disposition Summary: 10/23/20 15:28 Discharge Ordered Location: Home kb Condition: Stable kb Diagnosis - Diarrhea, unspecified kb - Nausea with vomiting, unspecified kb Followup: kb - With: Emergency Department - When: As needed - Reason: Worsening of condition Followup: kb - With: Private Physician - When: 2 - 3 days - Reason: Recheck today's complaints, Continuance of care, Re-evaluation by your physician Discharge Instructions: - Discharge Summary Sheet kb - Food Choices to Help Relieve Diarrhea, Adult kb - Nausea and Vomiting, Adult, [id number] kb - Diarrhea, Adult, [id number] kb Forms: - Work release form kb - Medication Reconciliation Form kb - Thank You Letter kb - Antibiotic Education kb - Prescription Opioid Use kb Prescriptions: - Zofran 4 mg Oral Tablet - take 1 tablet by ORAL route every 6 hours As needed; 20 tablet; Refills: 0, kb Product Selection Permitted Signatures: Dispatcher [employer] EDMS Audra Young, SAMMI-C SAMMI-Stewart Gillespie MD MD kdr Graham, Kristen RN RN kg Corrections: (The following items were deleted from the chart) 14:16 13:07 CORONAVIRUS+ ordered. EDSD EDMS
[2020-10-23 17:53] VITALS: BP 133/99; TEMP 98.1; O2SAT 100
== END 2020-10-23 15:57 | disposition home or self-care (01) ==
LOC: ER 11:11
DX: R19.7 Diarrhea, unspecified (principal); Z20.822 Contact with and (suspected) exposure to COVID-19
CPT/HCPCS: 99281; U0003

== ENCOUNTER 2020-11-22 12:47 | Emergency (ER) | payer OTHER ==
[2020-11-22] MEDS ORDERED: METHYLPREDNISOLONE 125 MG INJ ONE (14:12)
[2020-11-22] MEDS ORDERED: IBUPROFEN 200 MG TAB PO ONE (14:12)
[2020-11-22 14:33] LABS: SARS-COV-2 RT PCR NEGATIVE (NEGATIVE)
--- NOTE | 2020-11-22 14:44 | ER ---
Nurse's Notes [facility] Name: Keenan Puckett Age: 25 yrs Sex: Male : 1995 Arrival Date: 11/22/2020 Time: 12:49 Bed 27 Private MD: Diagnosis: Acute pharyngitis, unspecified Presentation: 11/22 12:52 Chief complaint: Patient states: chills and sore throat began Monday. Pt denies cough. iw Reports he took a home covid test and it was negative. Coronavirus screen: sore throat. Ebola Screen: Patient negative for fever greater than or equal to 101.5 degrees Fahrenheit, and additional compatible Ebola Virus Disease symptoms. Initial Sepsis Screen: Does the patient meet any 2 criteria? HR > 90 bpm. Does the patient have a suspected source of infection? No. Patient's initial sepsis screen is negative. Risk Assessment: Do you want to hurt yourself or someone else? Patient reports no desire to harm self or others. Onset of symptoms was November 2020. 12:52 Method Of Arrival: Ambulatory iw 12:52 Acuity: RANDA 4 Triage Assessment: 15:38 General: Appears in no apparent distress. Behavior is calm, cooperative. iw Historical: - Allergies: 12:54 No Known Allergies; iw - PMHx: 12:54 None; iw - Immunization history:: Client reports receiving the 1st dose of the Covid vaccine. - Social history:: Smoking status: Patient denies any tobacco usage or history of. Screenin:20 Abuse screen: Denies threats or abuse. Denies injuries from another. Nutritional aj2 screening: No deficits noted. Tuberculosis screening: No symptoms or risk factors identified. Fall Risk None identified. Assessment: 13:16 Pain: Complains of pain in left mandible Pain does not radiate. Pain currently is 7 out aj2 of 10 on a pain scale. Quality of pain is described as soreness Pain began 2-3 days ago. Is continuous, Alleviated by nothing. Aggravated by eating. Respiratory: Airway is patent Respiratory effort is unlabored. EENT: Throat. 15:38 Respiratory: Breath sounds are clear. iw Vital Signs: 12:52 BP 139 / 92; Pulse 115; Resp 20 S; Temp 100.6(O); Pulse Ox 97% on R/A; Weight 97.52 kg iw (R); Height 5 ft. 11 in. (180.34 cm) (R); 13:21 BP 105 / 63; Pulse 98; Resp 18; Temp 98.6; Pulse Ox 99% ; aj2 12:52 Body Mass Index 29.99 (97.52 kg, 180.34 cm) iw ED Course: 12:49 Patient arrived in ED. as 12:52 Arm band placed on. iw 12:54 Triage completed. iw 12:54 Felisa Hanna RN is Primary Nurse. iw 13:09 Romel Tamayo NP is PHCP. pm1 13:09 Jamie Gomez MD is Attending Physician. pm1 13:20 No apparent distress. Resting quietly. aj2 13:20 Patient has correct armband on for positive identification. aj2 13:20 No provider procedures requiring assistance completed. Patient did not have IV access aj2 during this emergency room visit. 13:35 Flu Sent. aj2 13:35 COVID-19 : Document "Date of Symptom Onset" if Symptomatic. Sent. aj2 13:35 Strep Sent. aj2 13:36 Group A Streptococcus Rapid Sc Sent. aj2 Administered Medications: 13:52 Drug: SOLU-Medrol (methylPREDNISolone sodium succinate) 125 mg Route: IM; Site: left aj2 deltoid; 13:52 Drug: Ibuprofen 600 mg Route: PO; aj2 Outcome: 14:44 Discharge ordered by . pm1 15:37 Discharged to home ambulatory. iw 15:37 Condition: good 15:37 Discharge instructions given to patient, Instructed on discharge instructions, follow up and referral plans. 15:38 Patient left the ED. iw Signatures: Danelle Acevedo as Felisa Hanna RN RN iw Romel Tamayo NP [employer]ICOND[employer] PROCESSING GROUP LEADER pm1 Rod Lopes aj2 Corrections: (The following items were deleted from the chart) 13:53 13:35 CORONAVIRUS drawn and sent. aj2 EDMS 13:54 13:35 Influenza Screen (A drawn and sent. aj2 EDMS
--- NOTE | 2020-11-22 14:44 | EDPHYS ---
Physician Documentation [facility] Name: Keenan Puckett Age: 25 yrs Sex: Male : 1995 Arrival Date: 11/22/2020 Time: 12:49 Bed 27 Private MD: ED Physician Jamie Gomez HPI: 11/22 13:52 This 25 yrs old Male presents to ER via Ambulatory with complaints of Sore pm1 Throat. 13:52 The patient presents with sore throat. The patient describes throat pain as raw, pm1 scratchy. Onset: The symptoms/episode began/occurred 2 day(s) ago. Severity of symptoms: in the emergency department the symptoms are actually worse. Modifying factors: The symptoms are alleviated by nothing, the symptoms are aggravated by foods, swallowing, Patient's oral intake status: good unaware of sick contact. Associated signs and symptoms: Pertinent negatives chills, cough, fever. The patient has not recently seen a physician. Historical: - Allergies: 12:54 No Known Allergies; iw - PMHx: 12:54 None; iw - Immunization history:: Client reports receiving the 1st dose of the Covid vaccine. - Social history:: Smoking status: Patient denies any tobacco usage or history of. ROS: 13:52 Constitutional: Negative for fever, chills, and weight loss, Cardiovascular: Negative pm1 for chest pain, palpitations, and edema, Respiratory: Negative for shortness of breath, cough, wheezing, and pleuritic chest pain, MS/Extremity: Negative for injury and deformity, Skin: Negative for injury, rash, and discoloration. 13:52 Neuro: Negative for headache, weakness, numbness, tingling, and seizure. 13:52 Abdomen/GI: Negative for abdominal pain, nausea, vomiting, diarrhea, and constipation. 13:52 ENT: Positive for sore throat, Negative for ear pain. 13:52 All other systems are negative. Exam: 13:52 Constitutional: This is a well developed, well nourished patient who is awake, alert, pm1 and in no acute distress. Head/Face: Normocephalic, atraumatic. 13:52 Skin: Warm, dry with normal turgor. Normal color with no rashes, no lesions, and no evidence of cellulitis. MS/ Extremity: Pulses equal, no cyanosis. Neurovascular intact. Full, normal range of motion. 13:52 Eyes: Exam is negative for acute changes, Periorbital structures: appear normal, Extraocular movements: intact throughout. 13:52 ENT: External ear(s): are unremarkable, Ear canal(s): are normal, TM's: are normal, Posterior pharynx: Tonsils: bilaterally enlarged, with erythema, with exudate, no ulcerations, peritonsillar mass, is not appreciated, pooling of secretions, is not appreciated. 13:52 Cardiovascular: Rate: normal, Rhythm: regular, Pulses: no pulse deficits are appreciated. 13:52 Respiratory: Exam negative for acute changes, respiratory distress, shortness of breath, Breath sounds: are clear throughout. 13:52 Neuro: Exam negative for acute changes, Orientation: is normal, Mentation: is normal, Motor: is normal, moves all fours. Vital Signs: 12:52 BP 139 / 92; Pulse 115; Resp 20 S; Temp 100.6(O); Pulse Ox 97% on R/A; Weight 97.52 kg iw (R); Height 5 ft. 11 in. (180.34 cm) (R); 13:21 BP 105 / 63; Pulse 98; Resp 18; Temp 98.6; Pulse Ox 99% ; aj2 12:52 Body Mass Index 29.99 (97.52 kg, 180.34 cm) iw MDM: 13:14 Patient medically screened. pm1 14:43 Data reviewed: vital signs. Data interpreted: Pulse oximetry: on room air is 99 %. pm1 Interpretation: normal. Counseling: I had a detailed discussion with the patient and/or guardian regarding: the historical points, exam findings, and any diagnostic results supporting the discharge/admit diagnosis, lab results, the need for outpatient follow up, to return to the emergency department if symptoms worsen or persist or if there are any questions or concerns that arise at home. 15:43 ED course: Patient reports improvement and has sore throat symptoms with medication pm1 given in the ER, Solu-Medrol and ibuprofen. 11/22 13:18 Order name: Strep pm1 11/22 13:18 Order name: COVID-19 : Document "Date of Symptom Onset" if Symptomatic. pm1 11/22 13:18 Order name: Flu pm1 11/22 13:19 Order name: Group A Streptococcus Rapid Sc; Complete Time: 14:18 EDMS 11/22 13:58 Order name: Throat Culture EDMS 11/22 14:33 Order name: COVID-19/FLU A+B; Complete Time: 14:43 EDMS Administered Medications: 13:52 Drug: SOLU-Medrol (methylPREDNISolone sodium succinate) 125 mg Route: IM; Site: left aj2 deltoid; 13:52 Drug: Ibuprofen 600 mg Route: PO; aj2 Disposition: 11/23 10:00 Co-signature as Attending Physician, Jamie Gomez MD I agree with the assessment and seamus plan of care. Disposition Summary: 11/22/20 14:44 Discharge Ordered Location: Home pm1 Problem: new pm1 Symptoms: have improved pm1 Condition: Stable pm1 Diagnosis - Acute pharyngitis, unspecified pm1 Followup: pm1 - With: Emergency Department - When: As needed - Reason: Worsening of condition Followup: pm1 - With: Private Physician - When: 2 - 3 days - Reason: Recheck today's complaints, Continuance of care, Re-evaluation by your physician Discharge Instructions: - Discharge Summary Sheet pm1 - Pharyngitis pm1 - Sore Throat pm1 Forms: - Work release form iw - Medication Reconciliation Form pm1 - Thank You Letter pm1 - Antibiotic Education pm1 - Prescription Opioid Use pm1 Signatures: Dispatcher [employer] EDJamie Lobo MD MD cha Williams, Irene, RN RN iw Romel Tamayo, DAVID WEB PRESS OPERATOR ASSISTANT pm1 Rod Lopes aj2 Corrections: (The following items were deleted from the chart) 11/22 13:53 13:19 CORONAVIRUS ordered. EDMS EDMS 13:54 13:19 Influenza Screen (A ordered. EDGA EDMS
[2020-11-22 15:44] VITALS: BP 105/63; TEMP 98.6; O2SAT 99
== END 2020-11-22 15:38 | disposition home or self-care (01) ==
LOC: ER 12:47
DX: J02.9 Acute pharyngitis, unspecified (principal); Z20.822 Contact with and (suspected) exposure to COVID-19
CPT/HCPCS: 87070; 87081; 0240U; 96372; 99283; J2930

== ENCOUNTER 2020-11-23 17:01 | Emergency (ER) | payer OTHER ==
[2020-11-23 18:46] LABS: Basophils % 0.1 % (0-1.3); Hematocrit 41.7 % (39.6-49.0); Lymphocytes % 11.8 % (15.3-44.8); MPV 8.3 fL (7.6-11.3); RBC Red Blood Cell Count 4.79 M/uL (4.33-5.43)
[2020-11-23] MEDS ORDERED: NA CHLORIDE 0.9% 1,000 ML ONE ×2 (18:52→19:41)
[2020-11-23 19:01] LABS: ALT/SGPT 51 U/L (12-78); AST/SGOT 14 U/L (15-37); Albumin 3.4 g/dL (3.4-5.0); Alkaline Phosphatase 97 U/L (45-117); BUN Blood Urea Nitrogen 19 mg/dL (7-18); Bicarbonate 27 mmol/L (21-32); Bilirubin Direct < 0.1 mg/dL (0-0.2); Bilirubin Total 0.2 mg/dL (0.2-1.0); Glucose Level 120 mg/dL (74-106); Magnesium 2.3 mg/dL (1.8-2.4); Potassium 3.9 mmol/L (3.5-5.1); Protein, Total 8.5 g/dL (6.4-8.2); Sodium Level 142 mmol/L (136-145); Troponin (Emerg Dept Use Only) < 0.02 ng/mL (0.0-0.045)
--- NOTE | 2020-11-23 19:03 | RAD REPORT ---
EXAM DESCRIPTION: RAD - Chest Single View - 11/23/2020 6:51 pm CLINICAL HISTORY: Chest pain;Palpitations COMPARISON: CHEST PA AND LAT 2 VIEW dated 02/27/2013 FINDINGS: Lines: None. Lungs: No evidence of edema or pneumonia. Pleural: No significant pleural effusions or pneumothorax. Cardiac: The heart size is within normal limits. Bones: No acute fractures. Other: IMPRESSION: No acute cardiopulmonary disease.
--- NOTE | 2020-11-23 19:56 | EDPHYS ---
Physician Documentation [facility] Name: Keenan Puckett Age: 25 yrs Sex: Male : 1995 Arrival Date: 11/23/2020 Time: 17:03 Bed 14 Private MD: ED Physician Marshal Mendoza HPI: 11/23 18:22 This 25 yrs old Male presents to ER via Ambulatory with complaints of pm1 Palpitations, Chest Pain. 18:22 The patient presents with a history of heart racing. Context: The symptoms occur with pm1 light activity. Onset: The symptoms/episode began/occurred this morning. Duration: The patient or guardian reports multiple episodes. Modifying factors: The symptoms are aggravated by light activity, Possible dehydration from pharyngitis The symptoms are alleviated by rest. Associated signs and symptoms: Pertinent positives: chest pain, Pertinent negatives: fever. Severity of symptoms: in the emergency department the symptoms are unchanged After drinking 2 bottles of water. Patient's pharyngitis has improved markedly from yesterday. The patient has not experienced similar symptoms in the past. The patient has been recently seen at the [facility] Emergency Department, yesterday, For pharyngitis. Discharged home with diagnosis of viral pharyngitis. Historical: - Allergies: 17:38 No Known Allergies; jl7 - Home Meds: 17:38 None [Active]; jl7 - PMHx: 17:38 None; jl7 - PSHx: 17:38 None; jl7 - Immunization history:: Adult Immunizations up to date, Client reports receiving the 1st dose of the Covid vaccine. - Social history:: Smoking status: Patient denies any tobacco usage or history of. ROS: 18:22 Constitutional: Negative for fever, chills, and weight loss. pm1 18:22 Respiratory: Negative for shortness of breath, cough, wheezing, and pleuritic chest pain, Abdomen/GI: Negative for abdominal pain, nausea, vomiting, diarrhea, and constipation, Back: Negative for injury and pain, MS/Extremity: Negative for injury and deformity, Skin: Negative for injury, rash, and discoloration, Neuro: Negative for headache, weakness, numbness, tingling, and seizure. 18:22 ENT: Positive for sore throat. 18:22 Cardiovascular: Positive for chest pain, palpitations, Negative for edema. 18:22 All other systems are negative. Exam: 18:22 Constitutional: This is a well developed, well nourished patient who is awake, alert, pm1 and in no acute distress. Head/Face: Normocephalic, atraumatic. 18:22 Back: No spinal tenderness. No costovertebral tenderness. Full range of motion. Skin: Warm, dry with normal turgor. Normal color with no rashes, no lesions, and no evidence of cellulitis. MS/ Extremity: Pulses equal, no cyanosis. Neurovascular intact. Full, normal range of motion. 18:22 Cardiovascular: Exam negative for acute changes, Rate: normal, Rhythm: regular, Pulses: no pulse deficits are appreciated, Heart sounds: normal, normal S1and S2, Edema: is not appreciated. 18:22 Respiratory: Exam negative for acute changes, respiratory distress, shortness of breath, Breath sounds: are clear throughout. 18:22 Neuro: Exam negative for acute changes, Orientation: is normal, Mentation: is normal, Motor: is normal, moves all fours. Vital Signs: 17:35 BP 128 / 88; Pulse 103; Resp 17; Temp 97.7; Pulse Ox 99% ; Weight 97.52 kg; Height 5 jl7 ft. 11 in. (180.34 cm); Pain 6/10; 18:15 BP 137 / 91; Pulse 84; Resp 18; Pulse Ox 100% on R/A; es2 19:20 BP 132 / 87 LA Supine (auto/reg); Pulse 87; Resp 18; Pulse Ox 100% ; Pain 0/10; bs2 19:22 BP 140 / 95 LA Sitting (auto/reg); Pulse 93; bs2 19:26 BP 131 / 97 LA Standing (auto/reg); Pulse 84; bs2 20:52 BP 128 / 87; Pulse 72; Resp 16; Temp 98.6; Pulse Ox 100% ; Pain 0/10; bs2 17:35 Body Mass Index 29.99 (97.52 kg, 180.34 cm) jl7 MDM: 18:20 Patient medically screened. pm1 19:39 Data reviewed: vital signs. Data interpreted: Pulse oximetry: on room air is 100 %. pm1 Interpretation: normal. 19:39 Counseling: I had a detailed discussion with the patient and/or guardian regarding: the pm1 historical points, exam findings, and any diagnostic results supporting the discharge/admit diagnosis, lab results, radiology results, the need for outpatient follow up, to return to the emergency department if symptoms worsen or persist or if there are any questions or concerns that arise at home. 11/23 18:22 Order name: Basic Metabolic Panel; Complete Time: 19:10 pm1 11/23 18:22 Order name: CBC with Diff; Complete Time: 18:57 pm11/23 18:22 Order name: LFT's; Complete Time: 19:10 pm11/23 18:22 Order name: Magnesium; Complete Time: 19:10 pm1 11/23 18:22 Order name: Troponin (emerg Dept Use Only); Complete Time: 19:10 pm11/23 18:22 Order name: XRAY Chest (1 view); Complete Time: 19:10 pm11/23 17:39 Order name: EKG - Nurse/Tech; Complete Time: 17:39 jl7 11/23 18:22 Order name: Orthostatic Blood Pressure; Complete Time: 19:27 pm11/23 18:22 Order name: EKG; Complete Time: 18:23 pm1 11/23 18:22 Order name: Cardiac monitoring; Complete Time: 19:20 pm11/23 18:22 Order name: EKG - Nurse/Tech; Complete Time: 19:20 pm11/23 18:22 Order name: IV Saline Lock; Complete Time: 18:23 pm11/23 18:22 Order name: Labs collected and sent; Complete Time: 18:26 pm11/23 18:22 Order name: O2 Per Protocol; Complete Time: 19:20 pm11/23 18:22 Order name: O2 Sat Monitoring; Complete Time: 19:20 pm1 Administered Medications: 18:29 Drug: NS 0.9% 1000 ml Route: IV; Rate: 1000 ml; Site: right antecubital; es2 20:53 Follow up: IV Status: Completed infusion; IV Intake: 1000ml bs2 19:19 Drug: NS 0.9% 1000 ml Route: IV; Rate: 1000 ml; Site: right antecubital; bs2 20:53 Follow up: IV Status: Completed infusion; IV Intake: 1000ml bs2 Disposition: 09/21 07:17 Co-signature as Attending Physician, Marshal Mendoza MD I agree with the assessment and rn plan of care. Attestation: The patient's history, exam findings, diagnostics, and a summary of any interventions or procedures was reviewed in detail with Romel Tamayo NP. Disposition Summary: 11/23/20 19:55 Discharge Ordered Location: Home pm1 Problem: new pm1 Symptoms: have improved pm1 Condition: Stable pm1 Diagnosis - Dehydration pm1 - Palpitations pm1 - Chest pain, unspecified pm1 Followup: pm1 - With: Emergency Department - When: As needed - Reason: Worsening of condition Followup: pm1 - With: Private Physician - When: 2 - 3 days - Reason: Recheck today's complaints, Continuance of care, Re-evaluation by your physician Discharge Instructions: - Discharge Summary Sheet pm1 - Nonspecific Chest Pain, Adult pm1 - Dehydration, Adult pm1 - Palpitations pm1 - Rehydration, Adult pm1 Forms: - Medication Reconciliation Form pm1 - Thank You Letter pm1 - Antibiotic Education pm1 - Prescription Opioid Use pm1 Signatures: Dispatcher [employer] EDMS Marshal Mendoza MD MD rn Marinas, Patrick, NP CARBIDE TOOL MAKER pm1 Anne Marie Spain RN RN jl7 Urvashi Turk RN RN bs2 Vee Turk RN RN es2
--- NOTE | 2020-11-23 19:56 | ER ---
Nurse's Notes [facility] Name: Keenan Puckett Age: 25 yrs Sex: Male : 1995 Arrival Date: 11/23/2020 Time: 17:03 Bed 14 Private MD: Diagnosis: Dehydration;Palpitations;Chest pain, unspecified Presentation: 11/23 17:35 Chief complaint: Patient states: Steroid shot yesterday and today HR increases with jl7 mild exertion, shortness of breath, chest pain. Coronavirus screen: Vaccine status: Patient reports receiving the 1st dose of the Covid vaccine. Date November 13, 2020 Pfizer shortness of breath. Ebola Screen: No symptoms or risks identified at this time. Initial Sepsis Screen: Does the patient meet any 2 criteria? No. Patient's initial sepsis screen is negative. Does the patient have a suspected source of infection? No. Patient's initial sepsis screen is negative. Risk Assessment: Do you want to hurt yourself or someone else? Patient reports no desire to harm self or others. Onset of symptoms was November 23, 2020. 17:35 Method Of Arrival: Ambulatory [facility] 17:35 Acuity: RANDA 2 jl7 Triage Assessment: 17:38 General: Appears in no apparent distress. uncomfortable, Behavior is calm, cooperative, jl7 appropriate for age. Pain: Complains of pain in chest. Cardiovascular: Reports palpitations, shortness of breath, Patient's skin is warm and dry. Historical: - Allergies: 17:38 No Known Allergies; jl7 - Home Meds: 17:38 None [Active]; jl7 - PMHx: 17:38 None; jl7 - PSHx: 17:38 None; jl7 - Immunization history:: Adult Immunizations up to date, Client reports receiving the 1st dose of the Covid vaccine. - Social history:: Smoking status: Patient denies any tobacco usage or history of. Screenin:14 Abuse screen: Denies threats or abuse. Nutritional screening: No deficits noted. tw2 Tuberculosis screening: No symptoms or risk factors identified. Fall Risk None identified. Assessment: 18:11 Reassessment: Patient and/or family updated on plan of care and expected duration. Pain es2 level reassessed. Patient is alert, oriented x 3, equal unlabored respirations, skin warm/dry/pink. Pt in for chest pain that started today. States with normal activity, chest gets tight, increased HR, and SOB. Received 1st dose of Pfizer about 2weeks ago. Was seen yesterday for a sore throat. Reports having diarrhea x3 today. General: Appears comfortable, well developed, well nourished, Behavior is calm, cooperative, appropriate for age. Pain: Complains of pain in chest and throat Pain does not radiate. Pain currently is 2 out of 10 on a pain scale. Pain began suddenly, Alleviated by rest, Aggravated by increased activity. Neuro: Level of Consciousness is awake, alert, obeys commands, Oriented to person, place, time, situation, Appropriate for age Gait is steady, Speech is normal, Facial symmetry appears normal. Cardiovascular: Reports chest pain, shortness of breath, since earlier today. Thinks it has something to do with steroid injection he received yesterday. Respiratory: Airway is patent Respiratory effort is even, unlabored, Respiratory pattern is regular, symmetrical. GI: Reports diarrhea. : No signs and/or symptoms were reported regarding the genitourinary system. EENT: No signs and/or symptoms were reported regarding the EENT system. Derm: Skin is intact, Skin is dry, Skin is pink, warm \T\ dry. normal, Skin temperature is warm. Musculoskeletal: No signs and/or symptoms reported regarding the musculoskeletal system. 18:15 Reassessment: provider at bedside at this time. tw2 Vital Signs: 17:35 BP 128 / 88; Pulse 103; Resp 17; Temp 97.7; Pulse Ox 99% ; Weight 97.52 kg; Height 5 jl7 ft. 11 in. (180.34 cm); Pain 6/10; 18:15 BP 137 / 91; Pulse 84; Resp 18; Pulse Ox 100% on R/A; es2 19:20 BP 132 / 87 LA Supine (auto/reg); Pulse 87; Resp 18; Pulse Ox 100% ; Pain 0/10; bs2 19:22 BP 140 / 95 LA Sitting (auto/reg); Pulse 93; bs2 19:26 BP 131 / 97 LA Standing (auto/reg); Pulse 84; bs2 20:52 BP 128 / 87; Pulse 72; Resp 16; Temp 98.6; Pulse Ox 100% ; Pain 0/10; bs2 17:35 Body Mass Index 29.99 (97.52 kg, 180.34 cm) jl7 ED Course: 17:03 Patient arrived in ED. rg4 17:38 Triage completed. jl7 17:38 Arm band placed on right wrist. EKG completed in triage. Results shown to MD. jl7 18:07 Vee Turk, MATTHEW is Primary Nurse. es2 18:14 Romel Tamayo, DAVID is PHCP. pm1 18:14 Marshal Mendoza MD is Attending Physician. pm1 18:15 Bed in low position. Call light in reach. monitor and storage bin tender on. Pulse ox on. NIBP on. tw2 18:15 Patient maintains SpO2 saturation greater than 95% on room air. es2 18:15 Patient maintains SpO2 saturation greater than 95% on room air. tw2 18:24 Inserted saline lock: 20 gauge in right antecubital area, using aseptic technique. es2 Blood collected. 18:26 XRAY Chest (1 view) Sent. es2 18:26 Basic Metabolic Panel Sent. es2 18:26 CBC with Diff Sent. es2 18:26 LFT's Sent. es2 18:26 Magnesium Sent. es2 18:26 Troponin (emerg Dept Use Only) Sent. es2 18:51 XRAY Chest (1 view) In Process Unspecified. EDMS 20:51 No provider procedures requiring assistance completed. IV discontinued, intact, bs2 bleeding controlled, No redness/swelling at site. Administered Medications: 18:29 Drug: NS 0.9% 1000 ml Route: IV; Rate: 1000 ml; Site: right antecubital; es2 20:53 Follow up: IV Status: Completed infusion; IV Intake: 1000ml bs2 19:19 Drug: NS 0.9% 1000 ml Route: IV; Rate: 1000 ml; Site: right antecubital; bs2 20:53 Follow up: IV Status: Completed infusion; IV Intake: 1000ml bs2 Intake: 20:53 IV: 1000ml; Total: 1000ml. bs2 20:53 IV: 1000ml; Total: 2000ml. bs2 Outcome: 19:55 Discharge ordered by . pm1 20:51 Discharged to home ambulatory. bs2 20:51 Condition: stable 20:51 Discharge instructions given to patient, Instructed on discharge instructions, follow up and referral plans. Demonstrated understanding of instructions, follow-up care. 20:54 Patient left the ED. bs2 Signatures: Dispatcher [employer] EDMS Romel Tamayo NP WOOD FUEL PELLETIZER pm1 Susie Perez RN RN tw2 Yanelis Chapa 4 Anne Marie Spain RN RN jl7 Urvashi Turk RN RN bs2 Vee Turk RN RN es2 Corrections: (The following items were deleted from the chart) 18:15 18:15 Pain: Pain began tw tw2
[2020-11-23 22:18] VITALS: O2SAT 100
[2020-11-23 22:22] VITALS: BP 128/87; TEMP 98.6
--- NOTE | 2020-11-24 10:24 | EKG ---
Test Date: 2020-11-23 Test Time: 17:42:02 Apprentice Painter Neckties: HB MEASUREMENT RESULTS: Intervals: Rate: 92 SC: 144 QRSD: 88 QT: 340 QTc: 420 [place]: P: 44 SC: 144 QRS: 41 T: 41 INTERPRETIVE STATEMENTS: Normal sinus rhythm Nonspecific T wave abnormality Abnormal ECG Compared to ECG 02/27/2013 22:03:58 T-wave abnormality now present Electronically Signed On 11-24-20 10:21:58 CDT by Misha Posadas
== END 2020-11-23 20:54 | disposition home or self-care (01) ==
LOC: ER 17:01
DX: E86.0 Dehydration (principal); R07.9 Chest pain, unspecified
CPT/HCPCS: 96361; 93005; 85025; 80048; 36415; 83735; 80076; 84484; 71045; 96360; 99285; J7030 ×2

== ENCOUNTER → 2023-03-19 | Emergency (ER) | payer BC ==
[~2023-03-19] MED LIST: DIPHENOX/ATROP SULF 1 TAB PO ONE; FAMOTIDINE 20 MG/2 ML VIAL IV ONE; KETOROLAC 30 MG/ML INJ ONE; NA CHLORIDE 0.9% 1,000 ML ONE; ONDANSETRON 4 MG/2 ML VIAL ONE
--- OUTSIDE RECORDS SUMMARY | 2023-03-19 20:44 | XMS REPORT | Continuity of Care Document ---
Author Name Unknown Address [address] [facility] [address] [place] [address] [facility] thconnect Address [address] [facility]. [address] [place] [address] Care Team Providers Care [place] Name Role Phone Pcp, Patient Does Not Have A Primary Care Physic jose Cari Villegas Attending Clinician Unavailable NAZANIN ABREU Attending Clinician Unavailable Isabel Ron Attending Clinician [phone] Carol Duvall MD Attending Clinician [phone] Nazanin Abreu MD Attending Clinician [phone] Lexi Khoury Attending Clinician [phone] Doctor Unassigned, [place] Attending Clinician U CAROL Denise Admitting Clinician Unavailable Carol Duvall MD Admitting Clinician [phone] Payers Payer Name Policy Type Policy Number Effective Date Expirati on Date Source PHCS GENERIC [id number] 2020 00:00:00 [employer] 53 [id number] [facility] Problems Condition Name Condition Details Condition Category Status Onset Date Resolution Date Last Treatment Date Treating Clinician Comments Source Generalize d abdominal pain Generalize d abdominal pain Disease Active 04-19 00:00: 00 [facility] No known active problems No known active problems Disease [facility] [id number] Mixed hyperlipid emia Problem [facility] [id number] Reactive depression Problem [facility] Allergies, Adverse Reactions, Alerts Allergy Name Allergy Type Status Severity Reaction(s) Onset Date Inactive Date Treating Clinician Comments Source NO KNOWN ALLERGIE S Drug Class Active [facility] Social History Social Habit Start Date Stop Date Quantity Comments Source History of tobacco use Cigarette Smoker [facility] History SDOH Social Connections Get Together [facility] History SDOH Social Connections [facility] History SDOH Social Connections Membership [facility] History SDOH Social Connections Meetings [facility] Sex Assigned At [facility] Alcohol intake 2022-04-20 00:00:00 2022-04-20 00:00:00 Current drinker of alcohol (finding) [facility] History SDOH Alcohol Frequency 2022-04-20 00:00:00 2022-04-20 00:00:00 1 [facility] History SDOH Alcohol Std Drinks 2022-04-20 00:00:00 2022-04-20 00:00:00 0 [facility] History SDOH Alcohol Binge 2022-04-20 00:00:00 2022-04-20 00:00:00 1 [facility] History SDOH Social Connections Phone 2022-04-20 00:00:00 2022-04-20 00:00:00 1 [facility] History SDOH Social Connections Living 2022-04-20 00:00:00 2022-04-20 00:00:00 3 [facility] History SDOH Physical Activity DPW 2022-04-20 00:00:00 2022-04-20 00:00:00 0 [facility] History SDOH Physical Activity MPS 2022-04-20 00:00:00 2022-04-20 00:00:00 0 [facility] History SDOH Financial 2022-04-20 00:00:00 2022-04-20 00:00:00 5 [facility] History SDOH Food Worry 2022-04-20 00:00:00 2022-04-20 00:00:00 1 [facility] History SDOH Food Scarcity 2022-04-20 00:00:00 2022-04-20 00:00:00 1 [facility] History SDOH Transport Med 2022-04-20 00:00:00 2022-04-20 00:00:00 2 [facility] History SDOH Transport Non-Med 2022-04-20 00:00:00 2022-04-20 00:00:00 2 [facility] Alcohol Comment 2022-04-20 00:00:00 2022-04-20 00:00:00 socially [facility] Exposure to SARS-CoV-2 (event) 2022-04-09 00:00:00 2022-04-19 20:54:00 Not sure [facility] Tobacco use and exposure 2022-04-19 00:00:00 2022-04-19 00:00:00 User of smokeless tobacco [facility] Smoking Status Start Date Stop Date Source Unknown if ever smoked [facility] Ex-smoker 2022-04-19 00:00:00 2022-04-19 [facility] Ordered Medication Name Filled Medication Name Start Date Stop Date Current Medication? Ordering Clinician Indication Dosage Frequency Signature (SIG) Comments Components Source lactobacill us acidophilus 04-22 00:00: 00 05-23 04:59 :00 No [id number] .5mg Take 1 tablet by mouth in the morning for 30 days. [facility] docusate 100 mg capsule 04-21 00:00: 00 05-22 04:59 :00 No [id number] 100mg Take 1 capsule by mouth in the morning for 30 days. [facility] acetaminoph en (TYLENOL) tablet 650 mg 04-20 17:53: 22 Yes 650mg 650 mg, Oral, Q6HPRN, Starting on Mon04/20/22 at 1153, Until Discontinu ed, Routine, Pain (scale 1-3), Temp > 38 C [facility] lactobacill us acidophilus tablet 0.5 mg 04-20 15:00: 00 Yes .5mg 0.5 mg, Oral, DAILY, First dose on Mon04/20/22 at 0900, Until Discontinu ed, Routine [facility] docusate (COLACE) capsule 100 mg 04-20 14:00: 00 Yes 100mg 100 mg, Oral, BID, First dose on Mon04/20/22 at 0800, Until Discontinu ed, Routine [facility] piperacilli n-tazobacta m (ZOSYN) 3.375 g in NaCl 0.9% (NS) 50 mL MINI-BAG 04-20 11:00: 00 04-20 14:39 :09 No 3.375g 3.375 g, IV Piggyback, Q8H ABX, 21 doses, First dose (after last reorder) on Mon04/20/22 at 0500, Last dose on Mon04/26/22 at 2100, Administer over 4 Hours, 50 mL
Reas on for Anti-Infec tive: Documented Infection< br>Documen honey Infection Site: Abdominal< br>Duratio n of Therapy: Other (see Comments) [facility] NaCl 0.9% (NS) IV infusion 1,000 mL 04-20 06:45: 00 Yes 1000mL at 150 mL/hr, IV Infusion, CONTINUOUS , Starting on Mon04/20/22 at 0045, Until Discontinu ed, Routine [facility] ondansetron (ZOFRAN (PF)) injection 4 mg 04-20 05:44: 27 Yes 4mg 4 mg, Slow IV Push, Q6HPRN, Starting on Mon04/19/22 at 2344, Until Discontinu ed, Routine, Nausea and Vomiting (N/V) [facility] piperacilli n-tazobacta m (ZOSYN) 3.375 g in NaCl 0.9% (NS) 50 mL MINI-BAG 04-20 02:37: 00 04-20 03:15 :00 No 3.375g 3.375 g, IV Piggyback, ONCE, 1 dose, On Mon04/19/22 at 2045, Administer over 30 Minutes, 50 mL
Reas on for Anti-Infec tive: Documented Infection< br>Documen honey Infection Site: Abdominal< br>Duratio n of Therapy: Other (see Comments) [facility] iopamidol (ISOVUE 370-500 mL) injection 100 mL 04-20 00:45: 00 04-19 23:40 :00 No [id number] 100mL 100 mL, Intravenou s, ONCE, 1 dose, On Mon04/19/22 at 1845, Routine [facility] NaCl 0.9% (NS) IV infusion 1,000 mL 04-19 23:30: 00 04-20 02:50 :00 No 1000mL at 999 mL/hr, Intravenou s, ONCE, 1 dose, On Mon04/19/22 at 1730, [facility] NaCl 0.9% (NS) IV infusion 1,000 mL 04-19 22:34: 00 04-20 02:50 :00 No 1000mL at 999 mL/hr, Intravenou s, ONCE, 1 dose, On Mon04/19/22 at 1645, [facility] sodium chloride (NS) injection 5 mL 04-19 22:16: 10 Yes 5mL 5 mL, Intravenou s, PRN, Starting on Mon04/19/22 at 1616, Until Discontinu ed, Routine, IV line flushing [facility] ondansetron (ZOFRAN (PF)) injection 4 mg 04-19 22:16: 00 04-19 23:11 :00 No 4mg 4 mg, Slow IV Push, ONCE, 1 dose, On Mon04/19/22 at 1630, [facility] Sertraline HCl 25 MG Sertraline HCl 25 MG 2021-03 00:00: 00 No 1{table t} QD Sertraline HCl 25 MG HYDROcodone -acetaminop hen (NORCO 5) 5-325 mg tablet 1 tablet 11-28 01:15: 00 11-28 00:30 :00 No 1{tbl} 1 tablet, Oral, ONCE, 1 dose, On Mon11/27/20 at 2015, ATTILA [facility] amoxicillin -clavulanat e (AUGMENTIN) 875-125 mg per tablet 1 tablet 11-28 01:00: 00 Yes 1{tbl} 1 tablet, Oral, Q12H, First dose on Mon11/27/20 at 2000, Until Discontinu ed, Routine
Reason for Anti-Infec tive: Documented Infection< br>Documen honey Infection Site: HEENT
D uration of Therapy: 7 days [facility] NaCl 0.9% (NS) bolus infusion 1,000 mL 11-27 23:45: 00 11-28 01:00 :00 No 1000mL at 999 mL/hr, 1,000 mL, IV Piggyback, ONCE, 1 dose, On Mon11/27/20 at 1845, STAT [facility] ondansetron (ZOFRAN (PF)) injection 4 mg 11-27 23:45: 00 11-27 23:03 :00 No 4mg 4 mg, Slow IV Push, ONCE, 1 dose, On Mon11/27/20 at 1845, ATTILA [facility] dexamethaso ne (DECADRON PHOSPHATE) injection 10 mg 11-27 23:45: 00 11-27 23:07 :00 No 10mg 10 mg, IV Push, ONCE, 1 dose, On Mon11/27/20 at 1845, STAT [facility] ketorolac (TORADOL) injection 30 mg 11-27 23:45: 00 11-27 23:05 :00 No 30mg 30 mg, Slow IV Push, ONCE, 1 dose, On Mon11/27/20 at 1845, ATTILA
Fa culty member approving Restricted medication : EMERGENCY ROOM, [facility] iopamidol (ISOVUE 370-500 mL) injection 100 mL 11-27 23:34: 00 11-27 23:35 :00 No [id number] 100mL 100 mL, Intravenou s, ONCE, 1 dose, On Mon11/27/20 at 1845, Routine [facility] amoxicillin -clavulanat e 875-125 mg per tablet 11-27 00:00: 00 12-12 04:59 :00 No [id number] 1{tbl} Take 1 tablet by mouth 2 (two) times daily for 14 days. [facility] acetaminoph en-codeine 300-30 mg tablet 11-27 00:00: 00 12-05 04:59 :00 No [id number] 1{tbl} Take 1 tablet by mouth every 6 (six) hours as needed for Pain (scale 7-10) for up to 7 days. Indication s: acute pain [facility] predniSONE 20 mg tablet 11-27 00:00: 00 12-01 04:59 :00 No [id number] 40mg Take 2 tablets by mouth daily for 3 days. [facility] ondansetron 4 mg disintegrat ing tablet 2017-03 00:00: 00 Yes 4mg Take 1 tablet by mouth every 8 (eight) hours as needed for Nausea and Vomiting (N/V). [facility] ondansetron 4 mg disintegrat ing tablet 2017-03 00:00: 00 Yes 4mg Take 1 tablet by mouth every 8 (eight) hours as needed for Nausea and Vomiting (N/V). [facility] ondansetron 4 mg disintegrat ing tablet 2017-03 00:00: 00 Yes 4mg Take 1 tablet by mouth every 8 (eight) hours as needed for Nausea and Vomiting (N/V). [facility] No Known Medications No Known Medications No [facility] No Known Medications No Known Medications No [facility] No Known Medications No Known Medications No [facility] Vitamin C Vitamin C No Vitamin C Vital Signs Vital Name Observation Time Observation Value Comments S samreen Systolic blood pressure 2022-04-21 17:14:00 111 mm[Hg] [facility] Diastolic blood pressure 2022-04-21 17:14:00 71 mm[Hg] [facility] Heart rate 2022-04-21 17:14:00 74 /min [facility] Body temperature 2022-04-21 17:14:00 35.83 Yenifer [facility] Respiratory rate 2022-04-21 17:14:00 18 /min [facility] Oxygen saturation in Arterial blood by Pulse oximetry 2022-04-21 17:14:00 97 /min [facility] Body height 2022-04-19 21:55:00 177.8 cm [facility] Body weight 2022-04-19 21:55:00 90.719 kg [facility] BMI 2022-04-19 21:55:00 28.70 kg/m2 [facility] height 2022-02-23 13:20:00 70 [in_i] Commo n [facility] weight 2022-02-23 13:20:00 207 [lb_av] Comm on [facility] temperature 2022-02-23 13:20:00 97.3 [degF] Com [facility] bmi 2022-02-23 13:20:00 29.7 kg/m2 Commo n [facility] oximetry 2022-02-23 13:20:00 96 % Comm n [facility] respiratory rate 2022-02-23 13:20:00 17 /min Common [facility] blood pressure systolic 2022-02-23 13:20:00 135 mm[Hg] Common [facility] blood pressure diastolic 2022-02-23 13:20:00 86 mm[Hg] Common [facility] height 2021-08-24 14:20:00 70 [in_i] Commo n [facility] weight 2021-08-24 14:20:00 210 [lb_av] Comm on [facility] temperature 2021-08-24 14:20:00 97.4 [degF] Com mon [facility] bmi 2021-08-24 14:20:00 30.13 kg/m2 Comm on [facility] oximetry 2021-08-24 14:20:00 98 % Commo n [facility] respiratory rate 2021-08-24 14:20:00 17 /min Common [facility] blood pressure systolic 2021-08-24 14:20:00 132 mm[Hg] [facility] blood pressure diastolic 2021-08-24 14:20:00 78 mm[Hg] Common [facility] height 2021-02-10 13:20:00 70 [in_i] Commo n [facility] weight 2021-02-10 13:20:00 205.4 [lb_av] Co [facility] temperature 2021-02-10 13:20:00 97.8 [degF] Com [facility] bmi 2021-02-10 13:20:00 29.47 kg/m2 Comm on [facility] oximetry 2021-02-10 13:20:00 97 % Commo n [facility] respiratory rate 2021-02-10 13:20:00 16 /min [facility] blood pressure systolic 2021-02-10 13:20:00 126 mm[Hg] Common [facility] blood pressure diastolic 2021-02-10 13:20:00 64 mm[Hg] [facility] height 2021-01-20 14:00:00 70 [in_i] Commo n [facility] weight 2021-01-20 14:00:00 206.4 [lb_av] Co on [facility] temperature 2021-01-20 14:00:00 97.5 [degF] Com [facility] bmi 2021-01-20 14:00:00 29.61 kg/m2 Comm on [facility] oximetry 2021-01-20 14:00:00 97 % Commo n [facility] respiratory rate 2021-01-20 14:00:00 16 /min [facility] blood pressure systolic 2021-01-20 14:00:00 136 mm[Hg] [facility] blood pressure diastolic 2021-01-20 14:00:00 80 mm[Hg] [facility] Systolic blood pressure 2020-11-28 01:07:01 120 mm[Hg] [facility] Diastolic blood pressure 2020-11-28 01:07:01 89 mm[Hg] [facility] Heart rate 2020-11-28 01:07:01 87 /min [facility] Body temperature 2020-11-28 01:07:01 36.94 Yenifer [facility] Respiratory rate 2020-11-28 01:07:01 17 /min [facility] Oxygen saturation in Arterial blood by Pulse oximetry 2020-11-28 01:07:01 97 /min [facility] Body weight 2020-11-27 21:55:00 97.523 kg [facility] Procedures Procedure Date / Time Performed Performing Clinician Source BASIC METABOLIC PANEL (NA, K, CL, CO2, GLUCOSE, BUN, CREATININE, CA) 2022-04-21 11:15:00 Nazanin Abreu [facility] CBC WITH DIFF 2022-04-21 11:15:00 [facility] PHOSPHORUS 2022-04-20 11:40:00 Carol Duvall [facility] MAGNESIUM 2022-04-20 11:40:00 Carol Duvall [facility] THYROID STIMULATING HORMONE 2022-04-20 11:40:00 Carol Duvall [facility] COMP. METABOLIC PANEL (71745) 2022-04-20 11:40:00 Carol Duvall [facility] LIPID PANEL (41545)(TOTAL CHOLESTEROL, TRIGLYCERIDES, HDL) 2022-04-20 11:40:00 Carol Duvall [facility] SEDIMENTATION RATE 2022-04-20 11:40:00 Carol Duvall [facility] CBC WITH DIFF 2022-04-20 11:40:00 Carol Duvall [facility] GLYCOSYLATED HEMOGLOBIN (A1C) 2022-04-20 11:40:00 Carol Duvall [facility] PROTHROMBIN TIME / INR 2022-04-20 11:40:00 Angel Duvall [facility] N-TERMINAL PRO-BNP 2022-04-20 11:40:00 Carol Duvall [facility] AC VBG + LACTIC ACID 2022-04-20 11:40:00 Jese Duvall [facility] URINALYSIS 2022-04-20 02:57:00 Isabel Padilla [facility] CT ABDOMEN PELVIS W CONTRAST 2022-04-19 23:52:27 [facility] LIPASE 2022-04-19 23:09:00 Isabel Padilla [facility] COMP. METABOLIC PANEL (41548) 2022-04-19 23:09:00 Randy [facility] CBC WITH DIFF 2022-04-19 23:09:00 Randy [facility] COVID-19 (ID NOW RAPID TESTING) 2022-04-19 23:09:00 Randy [facility] LAB ONLY COVID INTERPRETATION 2022-04-19 23:09:00 [facility] NOTICE OF PRIVACY PRACTICES 2022-04-19 21:33:23 Doctor Unassigned, [place] [facility] CONSENT/REFUSAL FOR DIAGNOSIS AND TREATMENT 2022-04-19 21:32:20 Doctor Unassigned, [place] [facility] URINALYSIS 2020-11-27 23:43:00 [facility] SOFT TISSUE NECK W CONTRAST 2020-11-27 23:39:34 Lexi Gunter [facility] COMP. METABOLIC PANEL (80437) 2020-11-27 23:03:00 Lexi Gunter [facility] CBC WITH DIFF 2020-11-27 23:03:00 Lexi [facility] RAPID STREP SCREEN FOR GROUP A 2020-11-27 23:03:00 Lexi Gunter [facility] NOTICE OF PRIVACY PRACTICES 2020-11-27 21:50:38 Doctor Unassigned, [place] [facility] CONSENT/REFUSAL FOR DIAGNOSIS AND TREATMENT 2020-11-27 21:50:23 Doctor Unassigned, [place] [facility] Encounters Start Date/Time End Date/Time Encounter Type Admission Type Attending [facility] Care Facility Care Department Encounter ID Source 2022-03-29 07:46:00 Outpatient Cari Villegas [facility] [id number] [facility] 2022-02-22 13:26:02 Outpatient Cari Villegas [facility] [id number] [facility] 2022-02-21 15:04:01 [facility] [id number] [facility] 2021-08-20 15:47:00 Outpatient Cari Villegas [facility] [id number] [facility] 2021-03-31 14:14:37 Outpatient Cari Villegas [facility] [id number] [facility] 2022-04-19 15:57:00 2022-04-21 13:45:00 Outpatient NAZANIN GARCIA [facility] [id number] [facility] 2022-04-19 15:57:00 2022-04-21 13:45:00 Emergency VincentIsabel Adnan [place], Jelani [facility] [id number] [facility] 2022-02-23 00:00:00 2022-02-23 00:00:00 [facility]V [facility]ISIT EST [facility]GE 18-39 [facility] [id number] 2021-08-24 00:00:00 2021-08-24 00:00:00 OFFICE VISIT EST PT LEVEL 3 [facility] [id number] [facility] 2021-02-10 00:00:00 2021-02-10 00:00:00 OFFICE VISIT EST PT LEVEL 3 [facility] [id number] [facility] 2021-01-20 00:00:00 2021-01-20 00:00:00 PREV VISIT NEW AGE 18-39 [facility] [id number] [facility] 2020-11-27 16:57:00 2020-11-27 20:13:00 Emergency Lexi Gunter [facility] [id number] [facility] 2020-11-27 16:52:00 2020-11-27 16:52:00 Emergency X [facility] ERT [id number] [facility] 2020-11-27 00:00:00 2020-11-27 00:00:00 Orders Only Doctor Unassigned, [place] [facility] [id number] [facility] Results Test Description Test Time Test Comments Results Result Co mments Source [facility] [id number] 23:37:18* Test Item Value Reference Range Interpretation Comme nts LIPASE (test code = 1530151759) 66 U/L 0-220 Lab Interpretation (test cod e = 95798-2) Normal [facility] with [id number] 23:28:35* Test Item Value Reference Range Interpretation Comme nts WBC (test code = 6690-2) 14.06 See_Comment H [Automated message] The system which generated this result transmitted reference range: 4.20 - 10.70 10*3/?L. The reference range was not used to interpret this result as normal/abnormal. RBC (test code = 789-8) 5.77 See_Comment H [Automated message] The system which generated this result transmitted reference range: 4.26 - 5.52 10*6/?L. The reference range was not used to interpret this result as normal/abnormal. HGB (test code = 718-7) 16.6 g/dL 12.2-16.4 H HCT (test code = 4544-3) 50.5 % 38.4-49.3 H MCV (test code = 787-2) 87.5 fL 81.7-95.6 MCH (test code = 785-6) 28.8 pg 26.1-32.7 MCHC (test code = 786-4) 32.9 g/dL 31.2-35.0 RDW-SD (test code = 88631-1) 41.8 fL 38.5-51.6 RDW-CV (test code = 788-0) 13.1 % 12.1-15.4 PLT (test code = 777-3) 273 See_Comment [Automated message] The system which generated this result transmitted reference range: 150 - 328 10*3/?L. The reference range was not used to interpret this result as normal/abnormal. MPV (test code = 04911-5) 9.9 fL 9.8-13.0 NRBC/100 WBC (test code = 8773205625) 0.0 See_Comment [Automated message] The system which generated this result transmitted reference range: 0.0 - 10.0 /100 WBCs. The reference range was not used to interpret this result as normal/abnormal. NRBC x10^3 (test code = 6426922134) See_Comment [Automated message] The system which generated this result transmitted reference range: 10*3/?L. The reference range was not used to interpret this result as normal/abnormal. GRAN MAT (NEUT) % (test code = 770-8) 87.8 % IMM GRAN % (test code = 7003595848) 0.60 % LYMPH % (test code = 736-9) 5.0 % MONO % (test code = 5905-5) 6.3 % EOS % (test code = 713-8) 0.2 % BASO % (test code = 706-2) 0.1 % GRAN MAT x10^3(ANC) (test code = 7926103228) 12.35 10*3/uL 1.99-6.95 H IMM GRAN x10^3 (test code = 2540437034) 0.08 10*3/uL 0.00-0.06 H LYMPH x10^3 (test code = 731-0) 0.70 10*3/uL 1.09-3.23 L MONO x10^3 (test code = 742-7) 0.88 10*3/uL 0.36-1.02 EOS x10^3 (test code = 711-2) 0.03 10*3/uL 0.06-0.53 L BASO x10^3 (test code = 704-7) 0.01-0.09 Lab Interpretation (test code = 45786-5) Abnormal [facility] (42810)2020-11-27 23:57:44* Test Item Value Reference Range Interpretation Comme nts NA (test code = 6479847278) 141 mmol/L 135-145 K (test code = 0274369456) 4.1 mmol/L 3.5-5.0 CL (test code = 9590864792) 104 mmol/L 98-108 CO2 TOTAL (test code = 8931773845) 28 mmol/L 23-31 AGAP (test code = 9782047335) 2-16 BUN (test code = 5380490814) 15 mg/dL 7-23 GLUCOSE (test code = 4140267309) 89 mg/dL 70-110 CREATININE (test code = 1754518267) 0.81 mg/dL 0.60-1.25 TOTAL BILI (test code = 8322042683) 0.5 mg/dL 0.1-1.1 CALCIUM (test code = 7283918613) 10.2 mg/dL 8.6-10.6 T PROTEIN (test code = 3180586992) 8.2 g/dL 6.3-8.2 ALBUMIN (test code = 1313776529) 4.6 g/dL 3.5-5.0 ALK PHOS (test code = 1683227790) 85 U/L 34-122 ALTv (test code = 1742-6) 35 U/L 5-50 AST(SGOT) (test code = 3052491210) 20 U/L 13-40 eGFR (test code = 9256670774) mL/min/1.73m2 FAREED (test code = FAREED) Association of Glomerular Filtration Rate (GFR) and Staging of Kidney Disease* + + +- +| GFR (mL/min/1.73 m2) ?| With Kidney Damage ?| ?Without Kidney Damage+ ------+ ----+ ------+| ?>90 ?| ?Stage one ?| ? Normal ?+ -+ + -+| ?60-89 ?| ?Stage two ?| ? Decreased GFR ? + + +- +| ?30-59 ?| ?Stage three ?| ? Stage three ? + + +- +| ?15-29 ?| ?Stage four ? | ? Stage four ?+ -+ + -+| ?<15 (or dialysis) ? ?| ?Stage five ? | ? Stage five ?+ -+ + -+ *Each stage assumes the associated GFR level has been in effect for at least three months. ?Stages 1 to 5, with or without kidney disease, indicate chronic kidney disease. Notes: Determination of stages one and two (with eGFR >59mL/min/1.73 m2) requires estimation of kidney damage for at least three months as defined by structural or functional abnormalities of the kidney, manifested by either:Pathological abnormalities or Markers of kidney damage (including abnormalities in the composition of the blood or urine or abnormalities in imaging tests). [facility] WITH [id number] 23:13:32* Test Item Value Reference Range Interpretation Comme nts WBC (test code = 6690-2) See_Comment H [Automated [employer]] The system which generated this result transmitted reference range: 4.20 - 10.70 10*3/?L. The reference range was not used to interpret this result as normal/abnormal. RBC (test code = 789-8) See_Comment [Automated [employer]] The system which generated this result transmitted reference range: 4.26 - 5.52 10*6/?L. The reference range was not used to interpret this result as normal/abnormal. HGB (test code = 718-7) 14.5 g/dL 12.2-16.4 HCT (test code = 4544-3) 44.3 % 38.4-49.3 MCV (test code = 787-2) 87.5 fL 81.7-95.6 MCH (test code = 785-6) 28.7 pg 26.1-32.7 MCHC (test code = 786-4) 32.7 g/dL 31.2-35.0 RDW-SD (test code = 01076-7) 42.6 fL 38.5-51.6 RDW-CV (test code = 788-0) 13.3 % 12.1-15.4 PLT (test code = 777-3) See_Comment H [Automated messa ge] The system which generated this result transmitted reference range: 150 - 328 10*3/?L. The reference range was not used to interpret this result as normal/abnormal. MPV (test code = 78301-9) 9.3 fL 9.8-13.0 L NRBC/100 WBC (test code = 4663638203) See_Comment [Automated [employer] ssage] The system which generated this result transmitted reference range: 0.0 - 10.0 /100 WBCs. The reference range was not used to interpret this result as normal/abnormal. NRBC x10^3 (test code = 0747939858) <0.01 See_Comment [Automated messa ge] The system which generated this result transmitted reference range: 10*3/?L. The reference range was not used to interpret this result as normal/abnormal. GRAN MAT (NEUT) % (test code = 770-8) 70.3 % IMM GRAN % (test code = 3956436698) 1.10 % LYMPH % (test code = 736-9) 18.5 % MONO % (test code = 5905-5) 8.8 % EOS % (test code = 713-8) 1.1 % BASO % (test code = 706-2) 0.2 % GRAN MAT x10^3(ANC) (test code = 8392758963) 9.94 10*3/uL 1.99-6.95 H IMM GRAN x10^3 (test code = 2532811038) 0.16 10*3/uL 0.00-0.06 H LYMPH x10^3 (test code = 731-0) 2.62 10*3/uL 1.09-3.23 MONO x10^3 (test code = 742-7) 1.24 10*3/uL 0.36-1.02 H EOS x10^3 (test code = 711-2) 0.16 10*3/uL 0.06-0.53 BASO x10^3 (test code = 704-7) 0.03 10*3/uL 0.01-0.09 Lab Interpretation (test code = 57811-4) Abnormal [facility]"
[2023-03-19 21:22] LABS: Absolute Lymphocytes (CBC) 1.2 K/uL (0.7-4.9); Hematocrit 49.7 % (39.6-49.0); Lymphocytes % 8.5 % (15.3-44.8); MCV 87.3 fL (80-100); MPV 8.1 fL (7.6-11.3); Platelets 241 thou/uL (152-406); RBC Red Blood Cell Count 5.69 M/uL (4.33-5.43)
[2023-03-19 21:38] LABS: Albumin 4.2 g/dL (3.4-5.0); Bilirubin Total 0.5 mg/dL (0.2-1.0); Potassium 3.9 mEq/L (3.5-5.1)
--- NOTE | 2023-03-20 00:25 | ER ---
Nurse's Notes [facility] Name: Keenan Puckett Age: 27 yrs Sex: Male : 1995 Arrival Date: 03/19/2023 Time: 20:40 Bed 16 Private MD: Diagnosis: Diarrhea, unspecified;Nausea with vomiting, unspecified Presentation: 03/19 20:56 Chief complaint: Patient states: Lower abdominal pain, nausea, vomiting and diarrhea cm10 onset today. Coronavirus screen: Vaccine status: Patient reports receiving the 2nd dose of the covid vaccine. Client denies travel out of the [place] in the last 14 days. Ebola Screen: Patient denies travel to an Ebola-affected area in the 21 days before illness onset. No symptoms or risks identified at this time. Initial Sepsis Screen: Does the patient meet any 2 criteria? No. Patient's initial sepsis screen is negative. Does the patient have a suspected source of infection? No. Patient's initial sepsis screen is negative. Risk Assessment: Do you want to hurt yourself or someone else? Patient reports no desire to harm self or others. Onset of symptoms was March 19, 2023. 20:56 Method Of Arrival: Ambulatory cm10 20:56 Acuity: RANDA 3 cm10 Triage Assessment: 21:02 General: Appears comfortable, Behavior is calm, cooperative. Pain: Complains of pain in rv abdomen. GI: Abdomen is round non-distended. Historical: - Allergies: 20:57 No Known Allergies; cm10 - Home Meds: 20:57 None [Active]; cm10 - PMHx: 20:57 None; cm10 - PSHx: 20:57 None; cm10 - Immunization history:: Adult Immunizations up to date. - Social history:: Smoking status: Reported history of juuling and/or vaping. Screenin:01 [facility] ED Fall Risk Assessment (Adult) History of falling in the last 3 months, rv including since admission No falls in past 3 months (0 pts) Score/Fall Risk Level 0 - 2 = Low Risk Oriented to surroundings, Maintained a safe environment, Educated pt \T\ family on fall prevention, incl call for assistance when getting out of bed, Assessed \T\ reinforced patient's understanding of fall precautions. Abuse screen: Denies threats or abuse. Denies injuries from another. Nutritional screening: No deficits noted. Tuberculosis screening: No symptoms or risk factors identified. Assessment: 03/20 00:38 GI: Bowel sounds present X 4 quads. Abd is soft and non tender X 4 quads. rv Vital Signs: 03/19 20:56 BP 122 / 85; Pulse 111; Resp 18; Temp 97.7; Pulse Ox 97% on R/A; Weight 90.72 kg; cm10 Height 5 ft. 11 in. ; Pain 6/10; 21:58 BP 125 / 92; Pulse 95; Resp 18; Pulse Ox 99% ; rv 23:28 BP 122 / 81; Pulse 74; Resp 17; Pulse Ox 98% on R/A; rv 03/20 00:38 BP 115 / 81; Pulse 76; Resp 17; Temp 98; Pulse Ox 99% on R/A; rv 03/19 20:56 Body Mass Index 27.89 (90.72 kg, 180.34 cm) cm10 03/19 20:56 Pain Scale: Adult cm10 [place] Coma Score: 03/19 21:58 Eye Response: spontaneous(4). Motor Response: obeys commands(6). Verbal Response: rv oriented(5). Total: 15. ED Course: 20:43 Patient arrived in ED. [id number] 20:53 Jamie Louis PA is PHCP. cp 20:53 Saad Sawyer MD is Attending Physician. cp 20:57 Triage completed. cm10 20:57 Arm band placed on Patient placed in an exam room, on a stretcher. cm10 21:01 Patient has correct armband on for positive identification. Client placed on continuous rv cardiac and pulse oximetry monitoring. NIBP monitoring applied. 21:01 No provider procedures requiring assistance completed. rv 21:04 Raj Helms, MATTHEW is Primary Nurse. rv 21:22 Inserted saline lock: 20 gauge in left antecubital area, using aseptic technique. Blood rv collected. 22:50 CT Abd/Pelvis - IV Contrast Only In Process Unspecified. EDMS 03/20 00:39 IV discontinued, intact, bleeding controlled, No redness/swelling at site. Pressure rv dressing applied. Administered Medications: 03/19 21:21 Drug: NS 0.9% IV 1000 ml IV at 1 bolus Per protocol; 1000 mL bolus Route: IV; Rate: 1 rv bolus; Site: left antecubital; 23:29 Follow up: IV Status: Completed infusion; IV Intake: 1000ml rv 21:21 Drug: Famotidine IVP 20 mg IVP once; dilute with 10 mL 0.9% NaCl; give over 2 minutes rv Route: IVP; Site: left antecubital; 22:02 Follow up: Response: No adverse reaction rv 21:22 Drug: TORadol - Ketorolac IVP 15 mg IVP once Route: IVP; Site: left antecubital; rv 22:02 Follow up: Response: No adverse reaction rv 21:22 Drug: Ondansetron IVP 4 mg IVP once; over 2 minutes Route: IVP; Site: left antecubital; rv 22:02 Follow up: Response: No adverse reaction rv 03/20 00:35 Drug: Diphenoxylate-Atropine PO 2 tabs PO once Route: PO; rv 00:38 Follow up: Response: Medication administered at discharge. rv Medication: 03/19 21:01 VIS not applicable for this client. rv Intake: 23:29 IV: 1000ml; Total: 1000ml. rv Outcome: 03/20 00:25 Discharge ordered by . cp 00:39 Discharged to home ambulatory, rv 00:39 Condition: good 00:39 Discharge instructions given to patient, Instructed on discharge instructions, follow up and referral plans. medication usage, Demonstrated understanding of instructions, follow-up care, medications, Prescriptions given X 2, 00:39 Patient left the ED. rv Signatures: Dispatcher [employer] EDMD Jamie Louis PA PA cp Raj Helms RN RN rv Randa Duncan [email or web address] Keshia Acevedo RN RN cm10
--- NOTE | 2023-03-20 00:25 | EDPHYS ---
Physician Documentation [facility] Name: Keenan Puckett Age: 27 yrs Sex: Male : 1995 Arrival Date: 03/19/2023 Time: 20:40 Bed 16 Private MD: ED Physician Saad Sawyer HPI: 03/19 21:15 This 27 yrs old Male presents to ER via Ambulatory with complaints of Abdominal Pain, cp Nausea/Vomiting/Diarrhea. 21:15 The patient presents with abdominal pain. Onset: The symptoms/episode began/occurred cp this morning. Associated signs and symptoms: Pertinent positives: nausea and vomiting, diarrhea. 21:15 The symptoms do not radiate. The symptoms are described as crampy. cp 21:15 Severity of pain: in the emergency department the pain is unchanged despite home cp interventions. Historical: - Allergies: 20:57 No Known Allergies; cm10 - Home Meds: 20:57 None [Active]; cm10 - PMHx: 20:57 None; cm10 - PSHx: 20:57 None; cm10 - Immunization history:: Adult Immunizations up to date. - Social history:: Smoking status: Reported history of juuling and/or vaping. ROS: 21:20 Constitutional: Positive for poor PO intake, Negative for fever, cp 21:20 Eyes: Negative for injury, pain, redness, and discharge, cp 21:20 ENT: Negative for drainage from ear(s), ear pain, sore throat, difficulty swallowing, difficulty handling secretions, 21:20 Cardiovascular: Negative for chest pain, palpitations, 21:20 Respiratory: Negative for cough, shortness of breath, wheezing, 21:20 Abdomen/GI: Positive for abdominal pain, nausea and vomiting, diarrhea, Negative for constipation, hematemesis, black/tarry stool, rectal bleeding, 21:20 Neuro: Negative for altered mental status, headache, 21:20 All other systems are negative, Exam: 21:25 Constitutional: The patient appears in no acute distress, alert, awake, non-toxic, well cp developed, well nourished, uncomfortable, 21:25 Head/Face: Normocephalic, atraumatic. cp 21:25 Eyes: Periorbital structures: appear normal, Conjunctiva: normal, Sclera: no appreciated abnormality, Lids and lashes: appear normal, bilaterally, 21:25 ENT: External ear(s): are unremarkable, Nose: is normal, Mouth: Lips: moist, Oral mucosa: pink and intact, moist, Posterior pharynx: Airway: no evidence of obstruction, patent, 21:25 Chest/axilla: Inspection: normal, 21:25 Cardiovascular: Rate: tachycardic, Rhythm: regular, 21:25 Respiratory: the patient does not display signs of respiratory distress, Respirations: normal, no use of accessory muscles, no retractions, labored breathing, is not present, Breath sounds: are clear throughout, no decreased breath sounds, no stridor, no wheezing, 21:25 Abdomen/GI: Inspection: abdomen appears normal, Bowel sounds: active, all quadrants, Palpation: soft, in all quadrants, moderate abdominal tenderness, in the right lower quadrant and left lower quadrant, rebound tenderness, is not appreciated, involuntary guarding, is not appreciated, 21:25 Back: pain, is absent, ROM is normal, Vital Signs: 20:56 BP 122 / 85; Pulse 111; Resp 18; Temp 97.7; Pulse Ox 97% on R/A; Weight 90.72 kg; cm10 Height 5 ft. 11 in. ; Pain 6/10; 21:58 BP 125 / 92; Pulse 95; Resp 18; Pulse Ox 99% ; rv 23:28 BP 122 / 81; Pulse 74; Resp 17; Pulse Ox 98% on R/A; rv 03/20 00:38 BP 115 / 81; Pulse 76; Resp 17; Temp 98; Pulse Ox 99% on R/A; rv 03/19 20:56 Body Mass Index 27.89 (90.72 kg, 180.34 cm) cm10 03/19 20:56 Pain Scale: Adult cm10 [place] Coma Score: 03/19 21:58 Eye Response: spontaneous(4). Motor Response: obeys commands(6). Verbal Response: rv oriented(5). Total: 15. MDM: 21:01 Patient medically screened. cp 22:00 Differential diagnosis: appendicitis, cholecystitis, Cholelithiasis, diverticulitis, cp non-specific abd pain, pancreatitis, Pyelonephritis, Ureterolithiasis, urinary tract infection, colitis. 03/20 00:25 Data reviewed: vital signs, nurses notes, lab test result(s), radiologic studies, CT cp scan. 00:25 I considered the following discharge prescriptions or medication management in the emergency department Medications were administered in the Emergency Department. See MAR. Counseling: I had a detailed discussion with the patient and/or guardian regarding the historical points, exam findings, and any diagnostic results supporting the discharge/admit diagnosis, lab results, radiology results, to return to the emergency department if symptoms worsen or persist or if there are any questions or concerns that arise at home. Response to treatment: the patient's symptoms have markedly improved after treatment, and as a result, I will discharge patient. Special discussion: Based on the patient's Hx, exam, and Dx evaluation, there is no indication for emergent surgery or inpatient Tx. It is understood by the patient/guardian that if the Sx's persist or worsen they need to return immediately for re-evaluation. 03/19 21:03 Order name: CBC with Diff; Complete Time: 21:49 cp 03/19 21:03 Order name: CMP; Complete Time: 21:49 cp 03/19 21:03 Order name: Lipase; Complete Time: 21:49 cp 03/19 21:49 Order name: CT Abd/Pelvis - IV Contrast Only cp 03/19 21:03 Order name: IV Saline Lock; Complete Time: 21:07 cp 03/19 21:03 Order name: Labs collected and sent; Complete Time: 21:07 cp Administered Medications: 03/19 21:21 Drug: NS 0.9% IV 1000 ml IV at 1 bolus Per protocol; 1000 mL bolus Route: IV; Rate: 1 rv bolus; Site: left antecubital; 23:29 Follow up: IV Status: Completed infusion; IV Intake: 1000ml rv 21: Drug: Famotidine IVP 20 mg IVP once; dilute with 10 mL 0.9% NaCl; give over 2 minutes rv Route: IVP; Site: left antecubital; 22:02 Follow up: Response: No adverse reaction rv 21: Drug: TORadol - Ketorolac IVP 15 mg IVP once Route: IVP; Site: left antecubital; rv 22:02 Follow up: Response: No adverse reaction rv 21: Drug: Ondansetron IVP 4 mg IVP once; over 2 minutes Route: IVP; Site: left antecubital; rv 22:02 Follow up: Response: No adverse reaction rv 03/20 00:35 Drug: Diphenoxylate-Atropine PO 2 tabs PO once Route: PO; rv 00:38 Follow up: Response: Medication administered at discharge. rv Disposition Summary: 03/20/23 00:25 Discharge Ordered Notes: Location: Home cp Problem: new cp Symptoms: have improved cp Condition: Stable cp Diagnosis - Diarrhea, unspecified cp - Nausea with vomiting, unspecified cp Followup: cp - With: Private Physician - When: 1 - 2 days - Reason: Worsening of condition Discharge Instructions: - Discharge Summary Sheet cp - Food Choices to Help Relieve Diarrhea, Adult cp - Diarrhea, Adult cp - Nausea and Vomiting, Adult cp Forms: - Medication Reconciliation Form cp - Thank You Letter cp - Antibiotic Education cp - Prescription Opioid Use cp - Patient Portal Instructions cp - Leadership Thank You Letter cp Prescriptions: - Zofran 4 mg Oral Tablet - take 1 tablet ORAL route every 12 hours As needed; 20 tablet; Refills: 0, cp Product Selection Permitted - dicyclomine 20 mg Oral tablet - take 1 tablet ORAL route 4 times per day; 20 tablet; Refills: 0, Product cp Selection Permitted Signatures: Dispatcher [employer] EDMS Jamie Louis PA PA cp Raj Helms RN RN rv Keshia Acevedo RN RN cm10 Corrections: (The following items were deleted from the chart) 23:34 23:32 Constitutional: Positive for poor PO intake, Negative for fever, cp cp
[2023-03-20 02:58] VITALS: O2SAT 99
[2023-03-20 03:15] VITALS: BP 115/81; TEMP 98
--- NOTE | 2023-03-22 11:08 | RAD REPORT ---
EXAM DESCRIPTION: CT - Abdomen Pelvis W Contrast - 03/20/2023 6:00 am CLINICAL HISTORY: ABD PAIN TECHNIQUE: Axial computed tomography images of the abdomen and pelvis with intravenous contrast. S agittal and coronal reformatted images were created and reviewed. This CT exam was performed using one or more of the following dose reduction techniques: automated exposure control, adjustment of t he mA and/or kV according to patient size, and/or use of iterative reconstruction technique. COMPARISON: CT Abdomen Pelvis dated 11/30/2018 FINDINGS: Lung bases: Unremarkable. No mass. No consolidation. ABDOMEN: Liver: Unremarkable. No mass. Gallbladder and bile ducts: Unremarkable. No calcified stones. No ductal dilation. Pancreas: Unremarkable. No mass. No ductal dilation. Spleen: Unremarkable. No splenomegaly. Adrenals: Unremarkable. No mass. Kidneys and ureters: Unremarkable. No solid mass. No hydronephrosis. Stomach and bowel: Nondilated fluid-filled small bowel loops. Air-fluid levels throughout the large bowel. No obstruction. No appreciable mucosal thickening. PELVIS: Appendix: Normal caliber appendix. No findings to suggest acute appendicitis. Bladder: Unremarkable. No mass. Reproductive: Unremarkable as visualized. ABDOMEN and PELVIS: Intraperitoneal space: Unremarkable. No free air. No significant fluid collection. Bones/joints: Mild thoracolumbar dextroscoliosis. No acute fracture. No dislocation. Soft tissues: Tiny fat-containing umbilical hernia. Vasculature: Unremarkable. No abdominal aortic aneurysm. Lymph nodes: Unremarkable. No enlarged lymph nodes. IMPRESSION: Nonspecific small and large bowel air-fluid levels which can be seen in the clinical set ting of diarrhea. Electronically signed by: Winter Betancourt MD 03/19/2023 11:12 PM [employer] Due to temporary technical issues with the PACS/Fluency reporting system, reports are being signed by the in house radiologists without review as a courtesy to insure prompt reporting. The interpreting radiologist is fully responsible for the content of the report.
== END ==
LOC: ER 20:40
DX: R19.7 Diarrhea, unspecified (principal); R11.2 Nausea with vomiting, unspecified
CPT/HCPCS: 96361; 85025; 36415; 83690; 80053; 74177; 96375; 96374; 99284; Q9967; J2405; J7030

== ENCOUNTER 2024-11-01 09:06 | Emergency (ER) | payer BC, SELFPAY ==
--- OUTSIDE RECORDS SUMMARY | 2024-11-01 09:10 | XMS REPORT | Continuity of Care Document ---
Author Name Unknown Address [address] [facility] [address] [place] [address] [facility] [place] Address [address] [facility] [address] [place] [address] Care Team Providers Care Yarn Cleaner Name Role Phone PCP, PATIENT DOES NOT HAVE A Primary Care Physic jose Unavailable Cari Villegas Attending Clinician Unavailable Vickie Parker Attending Clinician [phone]- [phone] VICKIE FISHER Attending Clinician Unavaila NIEVES Harris Attending Clinician Unavailable Nieves Phillips Attending Clinician [phone] NAZANIN ABREU Attending Clinician Unavailable Isabel Ron Attending Clinician [phone] Carol Duvall MD Attending Clinician [phone] Nazanin Abreu MD Attending Clinician [phone] Lexi Khoury Attending Clinician [phone] Doctor Unassigned, [place] Attending Clinician U VICKIE Muñoz Admitting Clinician UnavailCAROL Baig Admitting Clinician Unavailable Carol Duvall MD Admitting Clinician [phone] Payers Payer Name Policy Type Policy Number Effective Date Expiration Date Source [employer] [id number] 2022 00:00:00 PHCS GENERIC [id number] 2020 00:00:00 [employer]IED B[employer]EFIT [employer]S [employer] 53 [id number] [facility] Problems Condition Name Condition Details Condition Category Status Onset Date Resolution Date Last Treatment Date Treating Clinician Comments Source Generalize d abdominal pain Generalize d abdominal pain Disease Active 14 00:00: 00 [facility] No known active problems No known active problems Disease [facility] [id number] Mixed hyperlipid emia Problem [facility] [id number] Reactive depression Problem [facility] Allergies, Adverse Reactions, Alerts Allergy Name Allergy Type Status Severity Reaction(s) Onset Date Inactive Date Treating Clinician Comments Source NO KNOWN ALLERGIE S Drug Class Active [facility] Social History Social Habit Start Date Stop Date Quantity Comments Source Sexual [facility] of tobacco use Cigarette Smoker [facility] History SDOH Social Connections Get Together [facility] History SDOH Social Connections Mosque [facility] History SDOH Social Connections Membership [facility] History SDOH Social Connections Meetings [facility] Sex Assigned At [facility] Alcoholic beverage intake 2024-03-21 00:00:00 2024-03-21 00:00:00 Current drinker of alcohol (finding) [facility] History of Social function 2022-04-20 00:00:00 2022-04-20 00:00:00 [facility] Alcohol intake 2022-04-20 00:00:00 2022-04-20 00:00:00 Current drinker of alcohol (finding) [facility] History SDOH Alcohol Frequency 2022-04-20 00:00:00 2022-04-20 00:00:00 1 [facility] History SDOH Alcohol Std Drinks 2022-04-20 00:00:00 2022-04-20 00:00:00 0 [facility] History SDOH Alcohol Binge 2022-04-20 00:00:00 2022-04-20 00:00:00 1 [facility] History SDOH Social Connections Phone 2022-04-20 00:00:00 2022-04-20 00:00:00 1 [facility] History SDOH Social Connections Living 2022-04-20 00:00:00 2022-04-20 00:00:00 3 [facility] History SDOH Physical Activity DPW 2022-04-20 00:00:00 2022-04-20 00:00:00 0 [facility] History SDOH Physical Activity MPS 2022-04-20 00:00:00 2022-04-20 00:00:00 0 [facility] History SDOH Financial 2022-04-20 00:00:00 2022-04-20 00:00:00 5 [facility] History SDOH Food Worry 2022-04-20 00:00:00 2022-04-20 00:00:00 1 [facility] History SDOH Food Scarcity 2022-04-20 00:00:00 2022-04-20 00:00:00 1 [facility] History SDOH Transport Med 2022-04-20 00:00:00 2022-04-20 00:00:00 2 [facility] History SDOH Transport Non-Med 2022-04-20 00:00:00 2022-04-20 00:00:00 2 [facility] Alcohol Comment 2022-04-20 00:00:00 2022-04-20 00:00:00 socially [facility] Exposure to SARS-CoV-2 (event) 2022-04-09 00:00:00 2022-04-19 20:54:00 Not sure [facility] Tobacco use and exposure 2022-04-19 00:00:00 2022-04-19 00:00:00 User of smokeless tobacco [facility] Smoking Status Start Date Stop Date Source Unknown if ever smoked [facility] Ex-smoker 2022-04-19 00:00:00 2022-04-19 00:00:00 [facility] Medications Ordered Medication Name Filled Medication Name Start Date Stop Date Current Medication? Ordering Clinician Indication Dosage Frequency Signature (SIG) Comments Components Source benzonatate 100 mg capsule -16 00:00: 00 Yes [id number] 100mg Take 1 capsule by mouth 3 (three) times daily as needed for Cough. [facility] dexamethaso ne sod phos PF injection 10 mg 08-10 14:45: 00 08-10 15:27 :00 No 10mg 10 mg, Slow IV Push, ONCE, 1 dose, On Mon08/11/23 at 0945, 1 mL [facility] NaCl 0.9% (NS) bolus infusion 500 mL 08-10 14:45: 00 08-10 16:21 :00 No 500mL at 999 mL/hr, 500 mL, IV Infusion, ONCE, 1 dose, On Mon08/11/23 at 0945, STAT [facility] diphenhydrA MINE (BENADRYL) injection 25 mg 08-10 14:45: 00 08-10 15:27 :00 No 25mg 25 mg, Slow IV Push, ONCE, 1 dose, On Mon08/11/23 at 0945, STAT [facility] metoclopram janet HCl (REGLAN) injection 10 mg 08-10 14:45: 00 08-10 15:27 :00 No 10mg 10 mg, Slow IV Push, ONCE, 1 dose, On Mon08/11/23 at 0945, ATTILA [facility] butalbital- acetaminoph en-caff 50-325-40 mg tablet 08-10 00:00: 00 Yes [id number] 1{tbl} Take 1 tablet by mouth every 6 (six) hours as needed for Other (migraine) . [facility] lactobacill us acidophilus 2-17 00:00: 00 05-23 04:59 :00 No [id number] .5mg Take 1 tablet by mouth in the morning for 30 days. [facility] docusate 100 mg capsule 2-16 00:00: 00 05-22 04:59 :00 No [id number] 100mg Take 1 capsule by mouth in the morning for 30 days. [facility] acetaminoph en (TYLENOL) tablet 650 mg 04-20 17:53: 22 Yes 650mg 650 mg, Oral, Q6HPRN, Starting on Mon04/20/22 at 1153, Until Discontinu ed, Routine, Pain (scale 1-3), Temp > 38 C [facility] lactobacill us acidophilus tablet 0.5 mg 04-20 15:00: 00 Yes .5mg 0.5 mg, Oral, DAILY, First dose on Mon04/20/22 at 0900, Until Discontinu ed, Routine [facility] docusate (COLACE) capsule 100 mg 04-20 14:00: 00 Yes 100mg 100 mg, Oral, BID, First dose on Mon04/20/22 at 0800, Until Discontinu ed, Routine [facility] piperacilli n-tazobacta m (ZOSYN) 3.375 g [...] br>Duratio n of Therapy: Other (see Comments) [facility] NaCl 0.9% (NS) IV infusion 1,000 mL 04-20 06:45: 00 Yes 1000mL at 150 mL/hr, IV Infusion, CONTINUOUS , Starting on Mon04/20/22 at 0045, Until Discontinu ed, Routine [facility] ondansetron (ZOFRAN (PF)) injection 4 mg 04-20 05:44: 27 Yes 4mg 4 mg, Slow IV Push, Q6HPRN, Starting on Mon04/19/22 at 2344, Until Discontinu ed, Routine, Nausea and Vomiting (N/V) [facility] piperacilli n-tazobacta m (ZOSYN) 3.375 g in NaCl 0.9% (NS) 50 mL MINI-BAG 04-20 02:37: 00 04-20 03:15 :00 No 3.375g 3.375 g, IV Piggyback, ONCE, 1 dose, On Mon04/19/22 at 2045, Administer over 30 Minutes, 50 mL
Reas on for Anti-Infec tive: Documented Infection< br>Documen honey Infection Site: Abdominal< br>Duratio n of Therapy: Other (see Comments) [facility] iopamidol (ISOVUE 370-500 mL) injection 100 mL 04-20 00:45: 00 04-19 23:40 :00 No [id number] 100mL 100 mL, Intravenou s, ONCE, 1 dose, On Mon04/19/22 at 1845, Routine [facility] NaCl 0.9% (NS) IV infusion 1,000 mL 04-19 23:30: 00 04-20 02:50 :00 No 1000mL at 999 mL/hr, Intravenou s, ONCE, 1 dose, On Mon04/19/22 at 1730, [facility] NaCl 0.9% (NS) IV infusion 1,000 mL 04-19 22:34: 00 04-20 02:50 :00 No 1000mL at 999 mL/hr, Intravenou s, ONCE, 1 dose, On Mon04/19/22 at 1645, [facility] sodium chloride (NS) injection 5 mL 04-19 22:16: 10 Yes 5mL 5 mL, Intravenou s, PRN, Starting on Mon04/19/22 at 1616, Until Discontinu ed, Routine, IV line flushing [facility] ondansetron (ZOFRAN (PF)) injection 4 mg 04-19 22:16: 00 04-19 23:11 :00 No 4mg 4 mg, Slow IV Push, ONCE, 1 dose, On Mon04/19/22 at 1630, [facility] Sertraline HCl 25 MG Sertraline HCl 25 MG 2021-03 00:00: 00 No 1{table t} QD Sertraline HCl 25 MG HYDROcodone -acetaminop hen (NORCO 5) 5-325 mg tablet 1 tablet 11-28 01:15: 00 11-28 00:30 :00 No 1{tbl} 1 tablet, Oral, ONCE, 1 dose, On Mon11/27/20 at 2015, [facility] amoxicillin -clavulanat e (AUGMENTIN) 875-125 mg per tablet 1 tablet 11-28 01:00: 00 Yes 1{tbl} 1 tablet, Oral, Q12H, First dose on Mon11/27/20 at 2000, Until Discontinu ed, Routine
Reason for Anti-Infec tive: Documented Infection< br>Documen honey Infection Site: HEENT
D uration of Therapy: 7 days [facility] NaCl 0.9% (NS) bolus infusion 1,000 mL 11-27 23:45: 00 11-28 01:00 :00 No 1000mL at 999 mL/hr, 1,000 mL, IV Piggyback, ONCE, 1 dose, On Mon11/27/20 at 1845, [facility] ondansetron (ZOFRAN (PF)) injection 4 mg 11-27 23:45: 00 11-27 23:03 :00 No 4mg 4 mg, Slow IV Push, ONCE, 1 dose, On Mon11/27/20 at 1845, [facility] dexamethaso ne (DECADRON PHOSPHATE) injection 10 mg 11-27 23:45: 00 11-27 23:07 :00 No 10mg 10 mg, IV Push, ONCE, 1 dose, On Mon11/27/20 at 1845, [facility] ketorolac (TORADOL) injection 30 mg 11-27 23:45: 00 11-27 23:05 :00 No 30mg 30 mg, Slow IV Push, ONCE, 1 dose, On Mon11/27/20 at 1845, ATTILA
[facility] member approving Restricted medication : EMERGENCY ROOM, [facility] iopamidol (ISOVUE 370-500 mL) injection 100 mL 11-27 23:34: 00 11-27 23:35 :00 No [id number] 100mL 100 mL, Intravenou s, ONCE, 1 dose, On Mon11/27/20 at 1845, Routine [facility] amoxicillin -clavulanat e 875-125 mg per tablet 11-27 00:00: 00 12-12 04:59 :00 No [id number] 1{tbl} Take 1 tablet by mouth 2 (two) times daily for 14 days. [facility] acetaminoph en-codeine 300-30 mg tablet 11-27 00:00: 00 12-05 04:59 :00 No [id number] 1{tbl} Take 1 tablet by mouth every 6 (six) hours as needed for Pain (scale 7-10) for up to 7 days. Indication s: acute pain [facility] predniSONE 20 mg tablet 11-27 00:00: 00 12-01 04:59 :00 No [id number] 40mg Take 2 tablets by mouth daily for 3 days. [facility] ondansetron 4 mg disintegrat ing tablet 2017-03 00:00: 00 Yes 4mg Take 1 tablet by mouth every 8 (eight) hours as needed for Nausea and Vomiting (N/V). [facility] No Known Medications No Known Medications No [facility] Vitamin C Vitamin C No Vitamin C Vital Signs Vital Name Observation Time Observation Value Comments S ource Systolic blood pressure 2024-03-22 03:06:00 136 mm[Hg] [facility] Diastolic blood pressure 2024-03-22 03:06:00 94 mm[Hg] [facility] Heart rate 2024-03-22 03:06:00 79 /min Un[facility] Body temperature 2024-03-22 03:06:00 36.78 Yenifer [facility] Respiratory rate 2024-03-22 03:06:00 18 /min [facility] Oxygen saturation in Arterial blood by Pulse oximetry 2024-03-22 03:06:00 98 /min [facility] Body height 2024-03-22 01:21:00 182.9 cm [facility] Body weight 2024-03-22 01:21:00 90.719 kg [facility] BMI 2024-03-22 01:21:00 27.12 kg/m2 [facility] Systolic blood pressure 2023-08-11 16:00:00 124 mm[Hg] [facility] Diastolic blood pressure 2023-08-11 16:00:00 87 mm[Hg] [facility] Heart rate 2023-08-11 16:00:00 92 /min [facility] Respiratory rate 2023-08-11 16:00:00 16 /min [facility] Oxygen saturation in Arterial blood by Pulse oximetry 2023-08-11 16:00:00 98 /min [facility] Body temperature 2023-08-11 14:37:00 36.78 Yenifer [facility] Body height 2023-08-11 14:37:00 182.9 cm [facility] Body weight 2023-08-11 14:37:00 90.719 kg [facility] BMI 2023-08-11 14:37:00 27.12 kg/m2 [facility] Systolic blood pressure 2022-04-21 17:14:00 111 mm[Hg] [facility] Diastolic blood pressure 2022-04-21 17:14:00 71 mm[Hg] [facility] Heart rate 2022-04-21 17:14:00 74 /min [facility] Body temperature 2022-04-21 17:14:00 35.83 Yenifer [facility] Respiratory rate 2022-04-21 17:14:00 18 /min [facility] Oxygen saturation in Arterial blood by Pulse oximetry 2022-04-21 17:14:00 97 /min [facility] Body height 2022-04-19 21:55:00 177.8 cm [facility] Body weight 2022-04-19 21:55:00 90.719 kg [facility] BMI 2022-04-19 21:55:00 28.70 kg/m2 [facility] height 2022-02-23 13:20:00 70 [in_i] Commo n [facility] weight 2022-02-23 13:20:00 207 [lb_av] Comm on [facility] temperature 2022-02-23 13:20:00 97.3 [degF] Com [facility] bmi 2022-02-23 13:20:00 29.7 kg/m2 Commo n [facility] oximetry 2022-02-23 13:20:00 96 % Commo n [facility] respiratory rate 2022-02-23 13:20:00 17 /min [facility] blood pressure systolic 2022-02-23 13:20:00 135 mm[Hg] Common [facility] blood pressure diastolic 2022-02-23 13:20:00 86 mm[Hg] Common [facility] height 2021-08-24 14:20:00 70 [in_i] Commo n [facility] weight 2021-08-24 14:20:00 210 [lb_av] Comm on [facility] temperature 2021-08-24 14:20:00 97.4 [degF] Com [facility] bmi 2021-08-24 14:20:00 30.13 kg/m2 Comm on [facility] oximetry 2021-08-24 14:20:00 98 % Commo n [facility] respiratory rate 2021-08-24 14:20:00 17 /min [facility] blood pressure systolic 2021-08-24 14:20:00 132 mm[Hg] [facility] blood pressure diastolic 2021-08-24 14:20:00 78 mm[Hg] Common [facility] height 2021-02-10 13:20:00 70 [in_i] Commo n [facility] weight 2021-02-10 13:20:00 205.4 [lb_av] Co on [facility] temperature 2021-02-10 13:20:00 97.8 [degF] Com [facility] bmi 2021-02-10 13:20:00 29.47 kg/m2 Comm on [facility] oximetry 2021-02-10 13:20:00 97 % Commo n [facility] respiratory rate 2021-02-10 13:20:00 16 /min Common [facility] blood pressure systolic 2021-02-10 13:20:00 126 mm[Hg] Common [facility] blood pressure diastolic 2021-02-10 13:20:00 64 mm[Hg] Common [facility] height 2021-01-20 14:00:00 70 [in_i] Commo n [facility] weight 2021-01-20 14:00:00 206.4 [lb_av] Co [facility] temperature 2021-01-20 14:00:00 97.5 [degF] Com [facility] bmi 2021-01-20 14:00:00 29.61 kg/m2 Comm on [facility] oximetry 2021-01-20 14:00:00 97 % Commo n [facility] respiratory rate 2021-01-20 14:00:00 16 /min Common [facility] blood pressure systolic 2021-01-20 14:00:00 136 mm[Hg] Common [facility] blood pressure diastolic 2021-01-20 14:00:00 80 mm[Hg] [facility] Systolic blood pressure 2020-11-28 01:07:01 120 mm[Hg] [facility] Diastolic blood pressure 2020-11-28 01:07:01 89 mm[Hg] [facility] Heart rate 2020-11-28 01:07:01 87 /min [facility] Body temperature 2020-11-28 01:07:01 36.94 Yenifer [facility] Respiratory rate 2020-11-28 01:07:01 17 /min [facility] Oxygen saturation in Arterial blood by Pulse oximetry 2020-11-28 01:07:01 97 /min [facility] Body weight 2020-11-27 21:55:00 97.523 kg [facility] Procedures Procedure Date / Time Performed Performing Clinician Source EKG-12 LEAD 2024-03-22 03:06:40 Vickie Fisher [facility] XR CHEST 1 VW 2024-03-22 02:00:44 Tahira [facility] TROPONIN I 2024-03-22 01:50:00 Vickie Fisher [facility] CBC WITH DIFF 2024-03-22 01:50:00 Tahira [facility] N-TERMINAL PRO-BNP 2024-03-22 01:50:00 Larry Fisher [facility] BASIC METABOLIC PANEL (NA, K, CL, CO2, GLUCOSE, BUN, CREATININE, CA) 2023-08-11 15:26:00 Abner [facility] CBC WITH DIFF 2023-08-11 15:26:00 Nieves Levine [facility] BASIC METABOLIC PANEL (NA, K, CL, CO2, GLUCOSE, BUN, CREATININE, CA) 2022-04-21 11:15:00 [facility] 2022-04-21 11:15:00 Nazanin Abreu [facility] PHOSPHORUS 2022-04-20 11:40:00 Carol Duvall [facility] MAGNESIUM 2022-04-20 11:40:00 Eloina jonathon [facility] THYROID STIMULATING HORMONE 2022-04-20 11:40:00 Carol Duvall [facility] COMP. METABOLIC PANEL (17631) 2022-04-20 11:40:00 Carol Duvall [facility] LIPID PANEL (72476)(TOTAL CHOLESTEROL, TRIGLYCERIDES, HDL) 2022-04-20 11:40:00 Carol Duvall [facility] SEDIMENTATION RATE 2022-04-20 11:40:00 Eloina [facility] CBC WITH DIFF 2022-04-20 11:40:00 Carol Duvall [facility] GLYCOSYLATED HEMOGLOBIN (A1C) 2022-04-20 11:40:00 Carol Duvall [facility] PROTHROMBIN TIME / INR 2022-04-20 11:40:00 Angel Duvall [facility] N-TERMINAL PRO-BNP 2022-04-20 11:40:00 Eloina [facility] AC VBG + LACTIC ACID 2022-04-20 11:40:00 Jese Duvall [facility] URINALYSIS 2022-04-20 02:57:00 Isabel [facility] ABDOMEN PELVIS W CONTRAST 2022-04-19 23:52:27 Randy [facility] LIPASE 2022-04-19 23:09:00 Isabel Padilla [facility] COMP. METABOLIC PANEL ([id number]) 2022-04-19 23:09:00 Randy [facility] CBC WITH DIFF 2022-04-19 23:09:00 Isabel Padilla [facility] COVID-19 (ID NOW RAPID TESTING) 2022-04-19 23:09:00 Randy [facility] LAB ONLY COVID INTERPRETATION 2022-04-19 23:09:00 Randy [facility] NOTICE OF PRIVACY PRACTICES 2022-04-19 21:33:23 Doctor Unassigned, [place] [facility] CONSENT/REFUSAL FOR DIAGNOSIS AND TREATMENT 2022-04-19 21:32:20 Doctor Unassigned, [place] [facility] URINALYSIS 2020-11-27 23:43:00 Lexi Gunter [facility] CT SOFT TISSUE NECK W CONTRAST 2020-11-27 23:39:34 Lexi Gunter [facility] COMP. METABOLIC PANEL (80219) 2020-11-27 23:03:00 Lexi Gunter [facility] CBC WITH DIFF 2020-11-27 23:03:00 Lexi Gunter [facility] RAPID STREP SCREEN FOR GROUP A 2020-11-27 23:03:00 Lexi Gunter [facility] NOTICE OF PRIVACY PRACTICES 2020-11-27 21:50:38 Doctor Unassigned, [place] [facility] CONSENT/REFUSAL FOR DIAGNOSIS AND TREATMENT 2020-11-27 21:50:23 Doctor Unassigned, [place] [facility] Encounters Start Date/Time End Date/Time Encounter Type Admission Type Attending [facility] Care Department Encounter ID Source 2022-03-29 07:46:00 Outpatient VillegasCari toro [facility] [id number] [facility] 2022-02-22 13:26:02 Outpatient Cari Villegas [facility] [id number] [facility] 2022-02-21 15:04:01 Outpatient Cari Villegas [facility] [id number] [facility] 2021-08-20 15:47:00 Outpatient Cari Villegas [facility] [id number] [facility] 2021-03-31 14:14:37 Outpatient Cari Villegas [facility] [id number] [facility] 2024-03-21 19:25:00 2024-03-21 21:08:00 Emergency Vickie Fisher [facility] [id number] [facility] 2024-03-21 19:25:00 2024-03-21 21:08:00 Emergency X VICKIE FISHER [facility] ERT [id number] [facility] 2023-08-11 09:39:00 2023-08-11 11:28:00 Emergency X NIEVES LEVINE [facility] ERT [id number] [facility] 2023-08-11 09:39:00 2023-08-11 11:28:00 Emergency Nieves Levine [facility] [id number] [facility] 2022-04-19 15:57:00 2022-04-21 13:45:00 Outpatient X CYNTHIA NAZANIN [facility] SUNDAY [id number] [facility] 2022-04-19 15:57:00 2022-04-21 13:45:00 Emergency Isabel Padilla, Nazanin Bolanos [facility] [id number] [facility] 2022-02-23 00:00:00 2022-02-23 00:00:00 PREV VISIT EST AGE 18-39 STLMLC STLMLC [id number] [facility] 2021-08-24 00:00:00 2021-08-24 00:00:00 OFFICE VISIT EST PT LEVEL 3 STLMLC STLMLC [id number] [facility] 2021-02-10 00:00:00 2021-02-10 00:00:00 OFFICE VISIT EST PT LEVEL 3 STLMLC STLMLC [id number] [facility] 2021-01-20 00:00:00 2021-01-20 00:00:00 PREV VISIT NEW AGE 18-39 STLMLC STLMLC [id number] [facility] 2020-11-27 16:57:00 2020-11-27 20:13:00 Emergency Lexi Gunter [facility] [id number] [facility] 2020-11-27 16:52:00 2020-11-27 16:52:00 Emergency X [facility] ERT [id number] [facility] 2020-11-27 00:00:00 2020-11-27 00:00:00 Orders Only Doctor Unassigned, [place] [facility] [id number] [facility] Results Test Description Test Time Test Comments Results Resul t Comments Source XR CHEST 1 VW 2024-03-22 02:53:39 History: dyspnea . Exam: XR CHEST 1 Date: 03/21/2024 7:30 PM Ordering provider: VICKIE FISHER Comparison: None available. Findings: Frontal view of the chest is obtained. The cardiac silhouette is normal in size. No evidence of infiltrate,pleur al effusion, CHF, or pneumothorax. [id number] 15:48:00* Test Item Value Reference Range Interpretation Comme nts WBC (test code = 6690-2) 5.15 4.20-10.70 RBC (test code = 789-8) 5.55 4.26-5.52 H HGB (test code = 718-7) 16.3 g/dL 12.2-16.4 HCT (test code = 4544-3) 50.3 % 38.4-49.3 H MCV (test code = 787-2) 90.6 fL 81.7-95.6 MCH (test code = 785-6) 29.4 pg 26.1-32.7 MCHC (test code = 786-4) 32.4 g/dL 31.2-35.0 RDW-SD (test code = 38051-2) 41.5 fL 38.5-51.6 RDW-CV (test code = 788-0) 12.5 % 12.1-15.4 PLT (test code = 777-3) 207 150-328 MPV (test code = 18441-6) 9.9 fL 9.8-13.0 NRBC/100 WBC (test code = 4922920195) 0.0 0.0-10.0 NRBC x10^3 (test code = 8477890735) See_Comment [Automated messa ge] The system which generated this result transmitted reference range: 10*3/?L. The reference range was not used to interpret this result as normal/abnormal. GRAN MAT (NEUT) % (test code = 770-8) 64.8 % IMM GRAN % (test code = 9868037507) 0.20 % LYMPH % (test code = 736-9) 26.4 % MONO % (test code = 5905-5) 7.4 % EOS % (test code = 713-8) 1.0 % BASO % (test code = 706-2) 0.2 % GRAN MAT x10^3(ANC) (test code = 4186799200) 3.34 10*3/uL 1.99-6.95 IMM GRAN x10^3 (test code = 4097959455) 0.00-0.06 LYMPH x10^3 (test code = 731-0) 1.36 10*3/uL 1.09-3.23 MONO x10^3 (test code = 742-7) 0.38 10*3/uL 0.36-1.02 EOS x10^3 (test code = 711-2) 0.05 10*3/uL 0.06-0.53 L BASO x10^3 (test code = 704-7) 0.01-0.09 Lab Interpretation (test code = 66148-5) [facility] [id number] 23:37:38* Test Item Value Reference Range Interpretation Comme nts NA (test code = 0714962975) 140 mmol/L 135-145 K (test code = 9456407089) 4.3 mmol/L 3.5-5.0 CL (test code = 3494479556) 103 mmol/L 98-108 CO2 TOTAL (test code = 2263883249) 24 mmol/L 23-31 AGAP (test code = 0875871985) 13 2-16 BUN (test code = 2606207086) 22 mg/dL 7-23 GLUCOSE (test code = 5141675809) 110 mg/dL 70-110 CREATININE (test code = 4949346654) 0.82 mg/dL 0.60-1.25 TOTAL BILI (test code = 7262281597) 0.6 mg/dL 0.1-1.1 CALCIUM (test code = 1496302360) 9.3 mg/dL 8.6-10.6 T PROTEIN (test code = 9220343613) 8.9 g/dL 6.3-8.2 H ALBUMIN (test code = 8287366843) 5.2 g/dL 3.5-5.0 H ALK PHOS (test code = 2413690599) 119 U/L 34-122 ALTv (test code = 1742-6) 41 U/L 5-50 AST(SGOT) (test code = 5994252511) 24 U/L 13-40 eGFR (test code = 6659818464) 115.4 mL/min/1.73m2 FAREED (test code = FAREED) Association of Glomerular Filtration Rate (GFR) and Staging of Kidney Disease* + --+ --+ ------+| GFR (mL/min/1.73 m2) ?| With Kidney Damage ?| ?Without Kidney Damage+ --------+ --------+ +| ?>90 ?| ?Stage one ?| ? Normal ?+ ---+ ---+ -------+| ?60-89 ?| ?Stage two ?| ? Decreased GFR ? + --+ --+ ------+| ?30-59 ?| ?Stage three ?| ? Stage three ? + --+ --+ ------+| ?15-29 ?| ?Stage four ? | ? Stage four ?+ ---+ ---+ -------+| ?<15 (or dialysis) ? ?| ?Stage five ? | ? Stage five ?+ ---+ ---+ -------+ *Each stage assumes the associated GFR level [...] or urine or abnormalities in imaging tests). Lab Interpretation (test code = 09709-4) [facility]normal [facility] Center[facility], [id number] 23:37:18* Test Item Value Reference Range Interpretation Comme nts LIPASE (test code = 4983575999) 66 U/L 0-220 Lab Interpretation (test cod e = 20004-7) Normal [facility] with Txbnnybdfrpr0539-28-55 23:28:35* Test Item Value Reference Range Interpretation [...] 32.9 g/dL 31.2-35.0 RDW-SD (test code = 36723-0) 41.8 fL 38.5-51.6 RDW-CV (test code = 788-0) 13.1 % 12.1-15.4 PLT (test code = 777-3) 273 See_Comment [Automated message] The system which generated this result transmitted reference range: 150 - 328 10*3/?L. The reference range was not used to interpret this result as normal/abnormal. MPV (test code = 60682-3) 9.9 fL 9.8-13.0 NRBC/100 WBC (test code = 5035253384) 0.0 See_Comment [Automated message] The system which generated this result transmitted reference range: 0.0 - 10.0 /100 WBCs. The reference range was not used to interpret this result as normal/abnormal. NRBC x10^3 (test code = 3902947868) See_Comment [Automated message] The system which generated this result transmitted reference range: 10*3/?L. The reference range was not used to interpret this result as normal/abnormal. GRAN MAT (NEUT) % (test code = 770-8) 87.8 % IMM GRAN % (test code = 0800199590) 0.60 % LYMPH % (test code = 736-9) 5.0 % MONO % (test code = 5905-5) 6.3 % EOS % (test code = 713-8) 0.2 % BASO % (test code = 706-2) 0.1 % GRAN MAT x10^3(ANC) (test code = 5633810885) 12.35 10*3/uL 1.99-6.95 H IMM GRAN x10^3 (test code = 2616438048) 0.08 10*3/uL 0.00-0.06 H LYMPH x10^3 (test code = 731-0) 0.70 10*3/uL 1.09-3.23 L MONO x10^3 (test code = 742-7) 0.88 10*3/uL 0.36-1.02 EOS x10^3 (test code = 711-2) 0.03 10*3/uL 0.06-0.53 L BASO x10^3 (test code = 704-7) 0.01-0.09 Lab Interpretation (test code = 53254-7) [facility]normal [facility]OLIC PAN[facility] (16120)2020-11-27 23:57:44* Test Item Value Reference Range Interpretation Comme nts NA (test code = 0955255655) 141 mmol/L 135-145 K (test code = 8283595549) 4.1 mmol/L 3.5-5.0 CL (test code = 3994263758) 104 mmol/L 98-108 CO2 TOTAL (test code = 7179193354) 28 mmol/L 23-31 AGAP (test code = 5541046996) 2-16 BUN (test code = 1971318032) 15 mg/dL 7-23 GLUCOSE (test code = 5808480095) 89 mg/dL 70-110 CREATININE (test code = 7712835120) 0.81 mg/dL 0.60-1.25 TOTAL BILI (test code = 3663053572) 0.5 mg/dL 0.1-1.1 CALCIUM (test code = 4870922146) 10.2 mg/dL 8.6-10.6 T PROTEIN (test code = 4792131122) 8.2 g/dL 6.3-8.2 ALBUMIN (test code = 3088729808) 4.6 g/dL 3.5-5.0 ALK PHOS (test code = 2440790562) 85 U/L 34-122 ALTv (test code = 1742-6) 35 U/L 5-50 AST(SGOT) (test code = 9183853311) 20 U/L 13-40 eGFR (test code = 3710795561) mL/min/1.73m2 FAREED (test code = FAREED) Association [...] or urine or abnormalities in imaging tests). [facility] WITH [id number] 23:13:32* Test Item Value Reference Range Interpretation Comme nts WBC (test code = 6690-2) See_Comment H [Automated [employer]II[employer] ge] The system which generated this result transmitted reference range: 4.20 - 10.70 10*3/?L. The reference range was not used to interpret this result as normal/abnormal. RBC (test code = 789-8) See_Comment [Automated [employer] ge] The system which generated this result [...] 32.7 g/dL 31.2-35.0 RDW-SD (test code = 77485-1) 42.6 fL 38.5-51.6 RDW-CV (test code = 788-0) 13.3 % 12.1-15.4 PLT (test code = 777-3) See_Comment H [Automated [employer] ge] The system which generated this result transmitted reference range: 150 - 328 10*3/?L. The reference range was not used to interpret this result as normal/abnormal. MPV (test code = 43004-4) 9.3 fL 9.8-13.0 L NRBC/100 WBC (test code = 2312148601) See_Comment [Automated Agrivida ssage] The system which generated this result transmitted reference range: 0.0 - 10.0 /100 WBCs. The reference range was not used to interpret this result as normal/abnormal. NRBC x10^3 (test code = 3148942383) <0.01 See_Comment [Automated messa ge] The system which generated this result transmitted reference range: 10*3/?L. The reference range was not used to interpret this result as normal/abnormal. GRAN MAT (NEUT) % (test code = 770-8) 70.3 % IMM GRAN % (test code = 1224117986) 1.10 % LYMPH % (test code = 736-9) 18.5 % MONO % (test code = 5905-5) 8.8 % EOS % (test code = 713-8) 1.1 % BASO % (test code = 706-2) 0.2 % GRAN MAT x10^3(ANC) (test code = 0183703821) 9.94 10*3/uL 1.99-6.95 H IMM GRAN x10^3 (test code = 1232575684) 0.16 10*3/uL 0.00-0.06 H LYMPH x10^3 (test code = 731-0) 2.62 10*3/uL 1.09-3.23 MONO x10^3 (test code = 742-7) 1.24 10*3/uL 0.36-1.02 H EOS x10^3 (test code = 711-2) 0.16 10*3/uL 0.06-0.53 BASO x10^3 (test code = 704-7) 0.03 10*3/uL 0.01-0.09 Lab Interpretation (test code = 49407-8) Abnormal [facility] Notes Date/Time Note Provider Source 2024-03-21 21:06:58 Awake, alert oriented X4, respiratory even and unlabored,skin w/d color appropriate for race, moves all ext well, pt encouraged to follow up with pcp and or return as needed Pt given printed and verbal discharge instructions regarding acute cough, fatigue, viral URI with cough, , patient verbralized understanding and signature obtained, patient denies any other concerns. Prescriptions provided Advised to seek medical attention for new/prolonged/worsening of symptoms, No adverse reaction to meds given in ER noted upon discharge Pt ambulated to the [facility] with steady gait ENER Janine Leyva RN [facility] 2024-03-21 19:20:04 Pt arrives ambulatory to ED c/o headache, cough, & body aches that started on Monday. ENER Jacque Hanna RN [facility] 2023-08-11 11:26:24 PT D/C home. GCS15, VS stable. Given D/C paperwork. Pt ambulatory at time of discharge. Pt educated on med usage, follow up care, s/s worsening condition, need for hydration. Pt verbalized understanding. Pt ambulated from ED in NAD. Prescription x 1 Skylar Chavez RN [facility] 2023-08-11 09:36:16 CC: patient presents to the ER with complaints of a migraine for the past 4 days, states has been taking tylenol without relief. Denies history of migraines. PMHx: see history Awake, alert, oriented, resp reg unlabored, skin warm and dry, color appropriate for race, moves all ext without difficulty, amb without assistance. Appears in no distress. Jimena Orozco RN [facility]"
[2024-11-01 10:05] LABS: Influenza A Ag Negative; Influenza B Ag Negative; SARS-CoV-2 Antigen Rapid Res Positive (Negative)
--- NOTE | 2024-11-01 10:37 | EDPHYS ---
Physician Documentation [facility] Name: Keenan Puckett Age: 29 yrs Sex: Male : 1995 Arrival Date: 11/01/2024 Time: 09:06 Bed 14 Private MD: ED Physician Marshal Mendoza HPI: 11/01 09:23 This 29 yrs old Male presents to ER via Ambulatory with complaints of Flu Symptoms. rn 09:23 Patient reports cough, congestion, headache and myalgia with nasal congestion that rn began yesterday. Multiple coworkers at work are sick with COVID. Denies shortness of breath. No chronic medical problems or lung problems. Denies shortness of breath. Started with sore throat but now generalized symptoms.. Historical: - Allergies: : No Known Allergies; iw - Home Meds: : None [Active]; iw - PMHx: :19 None; iw - PSHx: 09:19 None; iw - Immunization history:: Adult Immunizations unknown. - Infectious Disease History:: Denies. - Family history:: not pertinent. - Hospitalizations: : No recent hospitalization is reported. - Social history:: Smoking status: unknown. ROS: 09:23 Constitutional: Positive for subjective fever and chills ENT: Positive for nasal rn congestion Cardiovascular: Negative for chest pain, palpitations, and edema, Respiratory: Positive for cough, negative for shortness of breath Abdomen/GI: Negative for abdominal pain, nausea, vomiting, diarrhea, and constipation, MS/Extremity: Negative for injury and deformity, Skin: Negative for injury, rash, and discoloration, Neuro: Positive for headache, negative for focal weakness or seizure Exam: 09:23 Constitutional: This is a well developed, well nourished patient who is awake, alert, rn and in no acute distress. ENT: No stridor, clear nasal drainage, mild pharyngeal erythema Neck: Nontender cervical lymphadenopathy Cardiovascular: Regular rate and rhythm. No pulse deficits. Respiratory: No increased work of breathing, no retractions or nasal flaring. Vital Signs: 09:28 BP 126 / 87; Pulse 100; Temp 97.8; Pulse Ox 98% ; pm7 10:44 BP 117 / 77; Pulse 91; Resp 15; Pulse Ox 95% on R/A; cm10 MDM: 09:08 Medical Screening Exam initiated rn 10:36 Differential Diagnosis: Bronchitis Influenza Upper Respiratory Infection Viral rn Syndrome. Data reviewed: vital signs, nurses notes, lab test result(s), and as a result, I will discharge patient. Counseling: I had a detailed discussion with the patient and/or guardian regarding the historical points, exam findings, and any diagnostic results supporting the discharge/admit diagnosis, lab results, the need for outpatient follow up, to return to the emergency department if symptoms worsen or persist or if there are any questions or concerns that arise at home. Special discussion: I discussed with the patient/guardian in detail that at this point there is no indication for admission to the hospital. It is understood, however, that if the symptoms persist or worsen the patient needs to return immediately for re-evaluation. 11/01 09:16 Order name: COVID-19 Ag + Flu A+B Ag; Complete Time: 10:36 cm10 11/01 09:19 Order name: Group A Streptococcus Rapid; Complete Time: 10:36 rn 11/01 10:04 Order name: Throat Culture EDMS Administered Medications: No medications were administered Disposition Summary: 11/01/24 10:37 Discharge Ordered Notes: Location: Home rn Problem: new rn Symptoms: have improved rn Condition: Stable rn Diagnosis - SARS-associated coronavirus as the cause of diseases classified elsewhere rn Followup: rn - With: Private Physician - When: As needed - Reason: Recheck today's complaints, Re-evaluation by your physician Discharge Instructions: - Discharge Summary Sheet rn - COVID-19 rn - 10 Things You Can Do to Manage Your COVID-19 Symptoms at Home - [facility] (09/18/2020) rn - Viral Illness, Adult rn Forms: - Medication Reconciliation Form rn - Antibiotic attorney at law - Prescription Opioid Use rn - Patient Portal Instructions rn - Leadership Thank You Letter rn - Work release form cm10 Signatures: Dispatcher [employer] Felisa Gallo RN RN iw Nieto, Roman, MD MD rn Martinez, Clarissa, RN RN cm10
--- NOTE | 2024-11-01 10:37 | ER ---
Nurse's Notes [facility] Name: Keenan Puckett Age: 29 yrs Sex: Male : 1995 Arrival Date: 11/01/2024 Time: 09:06 Bed 14 Private MD: Diagnosis: SARS-associated coronavirus as the cause of diseases classified elsewhere Presentation: 11/01 09:17 Chief complaint: Patient states: wants a COVD test, has had headache, runny nose, note iw feeling well. Coronavirus screen: Client presents with at least one sign or symptom that may indicate coronavirus-19. Ebola Screen: No symptoms or risks identified at this time. Initial Sepsis Screen: Does the patient meet any 2 criteria? No. Patient's initial sepsis screen is negative. Does the patient have a suspected source of infection? No. Patient's initial sepsis screen is negative. Risk Assessment: Do you want to hurt yourself or someone else? Patient reports no desire to harm self or others. Onset of symptoms was October 31, 2024. 09:17 Method Of Arrival: Ambulatory iw 09:17 Acuity: RANDA 4 iw Historical: - Allergies: 09:19 No Known Allergies; iw - Home Meds: 09:19 None [Active]; iw - PMHx: 09:19 None; iw - PSHx: 09:19 None; iw - Immunization history:: Adult Immunizations unknown. - Infectious Disease History:: Denies. - Family history:: not pertinent. - Hospitalizations: : No recent hospitalization is reported. - Social history:: Smoking status: unknown. Screenin:24 [facility] ED Fall Risk Assessment (Adult) History of falling in the last 3 months, cm10 including since admission No falls in past 3 months (0 pts) Confusion or Disorientation No (0 pts) Intoxicated or Sedated No (0 pts) Impaired Gait No (0 pts) Mobility Assist Device Used No (0 pt) Altered Elimination No (0 pt) Score/Fall Risk Level 0 - 2 = Low Risk Oriented to surroundings, Maintained a safe environment, Hourly rounding (assess needs \T\ fall precautionary measures) done. Abuse screen: Denies threats or abuse. Denies injuries from another. Nutritional screening: No deficits noted. Tuberculosis screening: No symptoms or risk factors identified. Assessment: 10:24 General: Appears in no apparent distress. comfortable, Behavior is calm, cooperative. cm10 Pain: Denies pain. Neuro: No deficits noted. Level of Consciousness is awake, alert, obeys commands, Oriented to person, place, time, situation, Appropriate for age. Respiratory: No deficits noted. Reports cough that is non-productive, Airway is patent Respiratory effort is even, unlabored, Respiratory pattern is regular, symmetrical. Vital Signs: 09:28 BP 126 / 87; Pulse 100; Temp 97.8; Pulse Ox 98% ; pm7 10:44 BP 117 / 77; Pulse 91; Resp 15; Pulse Ox 95% on R/A; cm10 ED Course: 09:08 Patient arrived in ED. al6 09:08 Marshal Mendoza MD is Attending Physician. rn 09:16 Keshia Acevedo, MATTHEW is Primary Nurse. cm10 09:18 Triage completed. iw 09:23 Arm band placed on. iw 09:24 COVID-19 Ag + Flu A+B Ag Sent. iw 10:25 Patient has correct armband on for positive identification. Bed in low position. Call cm10 light in reach. Side rails up X 1. Provided Education on: ER process and procedures.. 10:50 No provider procedures requiring assistance completed. Patient did not have IV access cm10 during this emergency room visit. Administered Medications: No medications were administered Medication: 10:24 VIS not applicable for this client. cm10 Outcome: 10:37 Discharge ordered by . rn 10:50 Discharged to home ambulatory, cm10 10:50 Condition: good 10:50 Discharge instructions given to patient, Instructed on discharge instructions, follow up and referral plans. medication usage, Demonstrated understanding of instructions, follow-up care, 10:50 Patient left the ED. cm10 Signatures: Felisa Hanna, MATTHEW RN iw Marshal Mendoza MD MD rn Martinez, Clarissa, RN RN cm10 Lucy Alejandro6 Eveline Hernandez pm7
[2024-11-01 10:55] VITALS: TEMP 97.8
[2024-11-01 10:57] VITALS: BP 117/77; O2SAT 95
== END 2024-11-01 10:50 | disposition home or self-care (01) ==
LOC: ER 09:06
DX: U07.1 COVID-19 (principal)
CPT/HCPCS: 36415; 87070; 87428; 99283